=== PATIENT | male | born 1950 | race Caucasian/White ===

== ENCOUNTER → 2018-03-26 08:23 | Outpatient (CLI) | payer MEDICARE ==
[~2018-03-26] VITALS: Ht 170.2 cm; Wt 44.1 kg
--- NOTE | ~2018-03-26 | OP ---
PATIENT NAME: THANG MCDANIEL MEDICAL RECORD: [id number] :48 LOCATION:D.CAT ADMISSION DATE: SURGEON: KARINA RUFF MD DATE OF OPERATION: 03/26/2018 PROCEDURES: 1. PTCA stent LAD. 2. Left heart catheterization. 3. Selective coronary angiography. 4. Left ventriculogram. INDICATION: Angina and coronary artery disease. PROCEDURE IN DETAIL: After informed consent was obtained and after a detailed description of risks, benefits as well as alternative therapies, the patient elected to proceed with angiogram and angioplasty. The left femoral area was prepped and draped in normal sterile fashion. Left femoral artery was cannulated via modified Seldinger technique with placement of 6-Malian sheath. FINDINGS: The left ventriculogram was performed in standard 30-degree CARVALHO view, reveals good cardiac wall motion throughout all segments. Overall ejection fraction 55%. SELECTIVE CORONARY ANGIOGRAPHY: 1. Left main has no significant angiographic disease. 2. Left anterior descending has previously placed stent proximally that is widely patent; however, the ostium has 90% stenosis. The remainder of the LAD has only mild irregularities. 3. The left circumflex has mild irregularities, no flow-limiting stenosis. 4. The right coronary artery has previously placed stent. This is widely patent. Mild to moderate disease elsewhere throughout the RCA. PTCA STENT OF THE LAD: The stent used was a 3.5 x 9 mm Integrity. Result was 0% residual stenosis. OVERALL IMPRESSION: Successful percutaneous transluminal coronary angioplasty stent of the left anterior descending going from 90% initial stenosis to 0% residual. TRANSINT:[id number] Voice Confirmation ID: [id number] DOCUMENT ID: [id number] KARINA RUFF MD at 1806 CC: [id number] DICTATION DATE: 03/26/18 1135 CANE STRIPPER: 03/26/18 1151 DEP CLI 03/26/18 [place] [id number]
--- NOTE | ~2018-03-26 | HEMODYNAMI ---
PATIENT:THANG MCDANIEL MEDICAL RECORD: [id number] : 48 LOCATION:[facility] ADMISSION DATE: 03/26/18 Generatedon:03/26/201811:30 Patient name: THANG MCDANIEL Patient #: [id number] SSN: : 1950 Date of study: 03/26/2018 Page: Of Hemodynamic Procedure Report Patient Data Patient Demographics Procedure consent was obtained First Name: THANG Gender: Male Last Name: VIOLETA : 1950 [facility] Initial: ASHLEY Age: 67 year(s) Patient #: [id number] Race: Unknown Additional ID: [id number] Contact details [address]: [address] [place] [address] State: [place] City: [place] Zip code: [address] Admission Admission Data Admission Date: 03/26/2018 Admission Time: 8:23 Procedure Procedure Types Cath Procedure Diagnostic Procedure LHC LHC w/Coronaries Sedation Charges Moderate Sedation up to 15 minutes PCI Procedure Coronary Stent Coronary Stent Initial Peripheral Cath Diagnostic Procedure Cath Peripheral Ujiih-Dqqeibw-Bug-Off Procedure Description Procedure Date Procedure Date: 03/26/2018 Procedure Start Time: 11:02 Procedure End Time: 11:29 Procedure Staff Name Function Maldonado Bright MD Performing Physician Felicia Massey RT Monitor Susanne Payne RT Scrub Asaf Whitaker RN Nurse Procedure Data Cath Procedure Fluoroscopy Diagnostic fluoroscopy Total fluoroscopy Time: 4.9 time: 4.9 min min Diagnostic fluoroscopy Total fluoroscopy dose: 129 dose: 129 mGy mGy Contrast Material Contrast Material Type Amount (ml) Isovue 300 118 Entry Location Entry Primary Successful Side Size Upsize Upsize Entry Closure Succes sful Closure Location (Fr) 1 (Fr) 2 (Fr) Remarks Device Remarks Femoral Left 5 Fr 6 Fr Exoseal artery Short Estimated blood loss: 10 ml Diagnostic catheters Device Type Used For End Catheter Placement MULTIPACK Pigtail 5 Fr LV Angiography catheter MULTIPACK Pigtail 5 Fr Abdominal catheter aortogram with runoff MULTIPACK JL 4.0 5Fr Left Coronary catheter Angiography MULTIPACK 3DRC 5Fr Right Coronary catheter Angiography Procedure Complications No complications Procedure Medications Medication Administration Route Dosage Oxygen etCO2 Nasal cannula 2 l/min Heparin Flush Bag added to field 2 bags (1000units/500ml NS) 0.9% NaCl I.V. 100 ml/hr Fentanyl I.V. 25 mcg Versed I.V. 0.5 mg Fentanyl I.V. 25 mcg Versed I.V. 0.5 mg Fentanyl I.V. 25 mcg Versed I.V. 0.5 mg Heparin Bolus I.V. 4000 units Integrilin (Bolus I.V. 4 ml 2mg/ml) Integrilin (Bolus wasted 6 ml 2mg/ml) Plavix P.O. 600 mg Hemodynamics Rest Heart Rate: 74 (bpm) Snapshots Pre Cath Intra NCS Post Cath Vital Signs Time Heart Resp SPO2 etCO2 NIBP (mmHg) Rhythm Pain Sedation Rate (ipm) (%) (mmHg) Status Level (bpm) 10:50:56 77 18 89 0 161/93(132) NSR 0 (11) 10(A) , No pain 10:55:08 69 17 96 19.5 158/90(134) NSR 0 (11) 10(A) , No pain 10:59:18 74 16 97 0 159/95(123) NSR 0 (11) 9(A) , No pain 11:03:31 75 16 97 19.5 133/84(123) NSR 0 (11) 9(A) , No pain 11:07:37 77 17 99 12.7 145/82(98) NSR 0 (11) 9(A) , No pain 11:11:47 80 17 98 10.5 141/80(116) NSR 0 (11) 9(A) , No pain 11:15:55 87 17 98 17.2 138/84(108) NSR 0 (11) 9(A) , No pain 11:20:01 89 16 98 27.7 134/85(113) NSR 0 (11) 9(A) , No pain 11:24:09 94 16 98 24.7 126/78(102) NSR 0 (11) 10(A) , No pain 11:28:14 87 22 98 27 126/72(101) NSR 0 (11) 10(A) , No pain Medications Time Medication Route Dose Verified Delivered Reason Notes Effectiveness by by 10:52:06 Oxygen etCO2 2 Maldonado Ron Per physician Nasal l/min Kaila Whitaker RN cannula 10:52:15 Heparin Flush added 2 Maldonado Ron used for Bag to bags Kaila Whitaker RN procedure (1000units/500ml field NS) 10:53:20 0.9% NaCl I.V. 100 Maldonado Ron Per physician ml/hr Kaila Whitaker RN 10:56:24 Fentanyl I.V. 25 Maldonado Ron for sedation mcg Kaila Whitaker RN 10:56:31 Versed I.V. 0.5 Maldonado Ron for sedation mg Kaila Whitaker RN 10:58:09 Fentanyl I.V. 25 Maldonado Ron for sedation mcg Kaila Whitaker RN 10:58:16 Versed I.V. 0.5 Maldonado Boydy for sedation mg Kaila Whitaker RN 11:09:03 Fentanyl I.V. 25 Maldonado Ron for sedation mcg Kaila Whitaker RN 11:09:07 Versed I.V. 0.5 Maldonado Ron for sedation mg Kaila Whitaker RN 11:20:24 Heparin Bolus I.V. 4000 Maldonado Ron for units Kaila Whitaker RN anticoagulation 11:20:34 Integrilin I.V. 4 ml Maldonado Ron for (Bolus 2mg/ml) Kaila Whitaker RN antiplatelet therapy 11:20:42 Integrilin wasted 6 ml Maldonado Ron for (Bolus 2mg/ml) Kaila Whitaker RN antiplatelet therapy 11:27:56 Plavix P.O. 600 Maldonado Ron for mg Kaila Whitaker RN antiplatelet therapy Procedure Log Time Note 10:30:05 Asaf Whitaker RN sent for patient. Start room use. 10:39:06 Time tracking: Regular hours (M-F 7:00 - 5:00) 10:39:12 Plan of Care:Hemodynamics will remain stable., Cardiac rhythm will remain stable., Comfort level will be maintained., Respiratory function will remain adequate., Patient/ family verbilizes understanding of procedure., Procedure tolerated without complication., Recovers from procedure without complications.. 10:44:57 Patient received from Pre/Post Procedure Room to [facility] 3 Alert and oriented. Tansferred to table in Supine position. 10:44:58 Warm blankets applied, and ugo hugger turned on for patient comfort. 10:44:59 Correct patient and procedure confirmed by team. 10:45:00 Signed procedure consent form obtained from patient. 10:45:00 ECG and BP/O2 sat monitors applied to patient. 10:45:01 Full Disclosure recording started 10:49:50 Vital chart was started 10:49:52 Baseline sample Acquired. 10:50:00 Rhythm: sinus rhythm 10:50:08 H&P Date Dictated: 03/26/2018 Within 30 days and on chart., H&P Addendum completed by physician on day of procedure. (MUST COMPLETE FOR ALL OUTPATIENTS). 10:50:10 Pre-procedure instructions explained to patient. 10:50:10 Pre-op teaching completed and patient verbalized understanding. 10:50:12 Family in patients room. 10:50:14 Patient NPO since Midnight. 10:50:15 Is the patient allergic to Iodine/contrast media? No. 10:50:16 Was the patient premedicated? No 10:50:17 Is patient on blood thinner?No 10:50:19 Patient diabetic? No. 10:50:21 Previous problem with sedation/anesthesia? No ? 10:50:23 Snore? Yes 10:50:24 Sleep apnea? No 10:50:25 Deviated septum? No 10:50:25 Opens mouth fully? Yes 10:50:26 Sticks out tongue? Yes 10:50:30 Airway obstruction? No ? 10:50:34 Dentures? Yes in tight 10:50:38 Pre procedure: right dorsailis pedis pulse 1+ Palpable, but thready & weak; easily obliterated 10:50:41 Pre procedure: left dorsailis pedis pulse 1+ Palpable, but thready & weak; easily obliterated 10:50:45 Patient pain scale 0/10 ?. 10:50:51 IV patent on arrival in left forearm with 0.9% NaCl at [facility]. 10:50:53 Lab results completed and on chart. 10:51:02 Left groin area was prepped with chlora-prep and draped in sterile fashion 10:51:03 Alarms reviewed by R. N. 10:51:03 Sharps counted by scrub and verified by R.N. 10:52:06 Oxygen 2 l/min etCO2 Nasal cannula was administered by Asaf Whitaker RN; Per physician; 10:52:15 Heparin Flush Bag (1000units/500ml NS) 2 bags added to field was administered by Asaf Whitaker RN; used for procedure; 10:53:20 0.9% NaCl 100 ml/hr I.V. was administered by Asaf Whitaker RN; Per physician; 10:55:53 Final Timeout: patient, procedure, and site verified with staff and physician. All members of the team are in agreement. 10:55:56 Left groin site verified by team. 10:55:59 Physical assessment completed. ASA score P 2 - A patient with mild systemic disease as per Maldonado Bright MD. 10:56:03 Sedation plan: IV Moderate Sedation Medication:Versed, Fentanyl 10:56:24 Fentanyl 25 mcg I.V. was administered by Asaf Whitaker RN; for sedation; 10:56:31 Versed 0.5 mg I.V. was administered by Asaf Whitaker RN; for sedation; 10:58:09 Fentanyl 25 mcg I.V. was administered by Asaf Whitaker RN; for sedation; 10:58:16 Versed 0.5 mg I.V. was administered by Asaf Whitaker RN; for sedation; 10:59:28 Zero performed for pressure channel P1 10:59:41 Zero performed for pressure channel P1 10:59:44 Zero performed for pressure channel P1 10:59:53 Use device set Femoral Dx 10:59:54 ACIST Syringe (43329) opened to sterile field. 10:59:54 Bag Decanter (2001S) opened to sterile field. 10:59:55 Medline Cath Pack ([id number]) opened to sterile field. 10:59:55 DIAGNOSTIC WIRE .035 260cm J wire (534426) opened to sterile field. 10:59:56 ACIST Hand Control (40368) opened to sterile field. 10:59:57 ACIST Manifold (46206) opened to sterile field. 10:59:57 DIAGNOSTIC Multipack 5Fr catheter set (FL5461) opened to sterile field. 10:59:59 Tegaderm 4 x 4 (1626W) opened to sterile field. 11:00:01 SHEATH Prelude 5Fr 0.035 (XPK-2C-03-035) opened to sterile field. 11:00:33 Baseline sample Acquired. 11:02:05 Procedure started. 11:02:09 Local anesthetic to left femerol artery with Lidocaine 2% by Maldonado Bright MD.INITIAL ACCESS ONLY 11:05:58 A 5 Fr sheath was inserted into the Left Femoral artery 11:06:47 A MULTIPACK Pigtail 5 Fr catheter was advanced over the wire and used for LV Angiography. 11:09:03 Fentanyl 25 mcg I.V. was administered by Asaf Whitaker RN; for sedation; 11::07 Versed 0.5 mg I.V. was administered by Asaf Whitaker RN; for sedation; 11:11:15 A MULTIPACK Pigtail 5 Fr catheter was advanced over the wire and used for Abdominal aortogram with runoff. 11:12:22 Catheter removed. 11:13:27 Procedure type changed to Cath procedure, Diagnostic procedure, LHC, LHC w/Coronaries, Sedation Charges, Moderate Sedation up to 15 minutes, PCI procedure, Coronary Stent, Coronary Stent Initial, Peripheral Cath Diagnostic Procedure, Cath Peripheral, Axrfm-Nvdgvtj-Zli-Off 11:13:35 A MULTIPACK JL 4.0 5Fr catheter was advanced over the wire and used for Left Coronary Angiography. 11:15:23 Catheter removed. 11:15:30 A MULTIPACK 3DRC 5Fr catheter was advanced over the wire and used for Right Coronary Angiography. 11:17:55 Catheter removed. 11:18:00 Sheath upsized to a 6 Fr Short. 11:18:07 Use device set [facility] PCI 11:18:08 SHEATH Prelude 6Fr 0.035 (TLC-3U-32-035) opened to sterile field. 11:18:11 INFLATOR Merit BasixCompak (TP4717) opened to sterile field. 11:18:19 GUIDE 6FR EBU 3.5 catheter ([id number]) opened to sterile field. 11:18:21 CHOICE PT Extra Support 182cm wire ([id number]) opened to sterile field. 11:20:00 6 Fr EBU 3.5 guide catheter was inserted over the wire 11:20:24 Heparin Bolus 4000 units I.V. was administered by Asaf Whitaker RN; for anticoagulation; 11:20:27 CHOICE PT ES wire advanced. 11:20:34 Integrilin (Bolus 2mg/ml) 4 ml I.V. was administered by Asaf Whitaker RN; for antiplatelet therapy; 11::42 Integrilin (Bolus 2mg/ml) 6 ml wasted was administered by Asaf Whitaker RN; for antiplatelet therapy; 11::58 Place stent Inflation Number: 1 A INTEGRITY RX 3.5 x 09 stent ([id number]) was prepped and advanced across the Prox LAD. The stent was deployed at 17 [place] for 0:08 (min:sec). 11::39 Stent catheter was removed intact over wire. 11::40 Wire removed. 11::41 Guide catheter removed. 11::49 Sheath removed intact; hemostasis achieved with Exoseal to the Left Femoral artery. 11:22:51 Procedure ended.(Physican Out) 11:23:31 Fluoroscopy time 04.90 minutes. 11:23:38 Fluoroscopy dose: 129 mGy 11::38 Flurop Dose total: 129 11::42 Contrast amount:Isovue 300 118ml. 11:23:43 Sharps counted by scrub and verified by R.N. 11:23:45 Insertion/operative site no bleeding no hematoma. 11:23:49 Post-op/insertion site Left Femoral artery dressed using a 4 x 4 and Tegaderm. 11:23:56 Post left femerol artery:stable, clean and dry 11::58 Post Procedure Pulses reassessed and unchanged 11:24:01 Post-procedure physical assessment completed. ASA score P 2 - A patient with mild systemic disease as per Maldonado Bright MD. 11:24:03 Post procedure rhythm: unchanged. 11:24:07 Estimated blood loss: 10 ml 11:24:08 Post procedure instruction explained to patient.Patient verbalizes understanding. 11:24:09 Patient needs reinforcement of post procedure teaching. 11:24:46 Procedure Complication : No complications 11:24:48 See physician's report for complete and final results. 11:25:00 EXOSEAL 6Fr (EX600) opened to sterile field. 11:26:23 Procedure and supply charges have been captured, reviewed, submitted and are correct. 11:27:56 Plavix 600 mg P.O. was administered by Asaf Whitaker RN; for antiplatelet therapy; 11:29:30 Vital chart was stopped 11::40 Report given to Pre/Post Procedure Room. 11:29:46 Patient transfered to Pre/Post Procedure Room with Stretcher. 11:29:55 Procedure ended. 11:29:55 Full Disclosure recording stopped 11:29:58 End room use (Document Last) Intervention Summary Intervention Notes Time ActionType Lesion and Equipment Action# Pressure Duration Attributes Used 11:21:58 Place stent Prox LAD INTEGRITY RX 1 17 00:08 3.5 x 09 stent ([id number]) Device Usage Item Name Manufacture Quantity Catalog Number Hospital Part Current Minimal Lot# / Charge Number Stock Stock Serial# Code ACIST Syringe Acist 1 18353 099063 496018 146042 20 (39747) Medical Systems Inc Bag Decanter Microtek 1 2001S 341185 65568 654935 5 (2001S) Medical Inc. Medline Cath Cardinal 1 [id number] 274206 13370 136015 5 Pack Health ([id number]) DIAGNOSTIC WIRE [place] 1 823319 305046 584280 743664 30 .035 260cm J wire (905783) ACIST Hand Acist 1 73789 750337 122376 209657 5 Control (26700) Medical Systems Inc ACIST Manifold Acist 1 38957 625741 591912 757982 5 (94069) Medical Systems Inc DIAGNOSTIC Cardinal 1 EE5855 699332 58388 973192 30 Multipack 5Fr Health catheter set (QV9140) Tegaderm 4 x 4 3M 1 1626W 769640 145833 889629 5 (1626W) SHEATH Prelude Merit 1 ZFN-2G-93-035 859163 306581 663744 5 5Fr 0.035 Medical (CCB-8I-51-035) MULTIPACK Cardinal 1 515788 5 Pigtail 5 Fr Health catheter MULTIPACK JL Cardinal 1 780933 5 4.0 5Fr Health catheter MULTIPACK 3DRC Cardinal 1 297787 5 5Fr catheter Health SHEATH Prelude Merit 1 LNP-5W-12-35 974563 2845747 237607 5 6Fr 0.035 Medical (ETK-2W-88-035) INFLATOR Merit Merit 1 VM6643 925967 002893 388273 15 TradingView Medical (EG0247) GUIDE 6FR EBU Medtronic 1 [id number] 279444 01218 255780 3 3.5 catheter ([id number]) CHOICE PT Extra [place] 1 [id number] 295050 128569 886505 5 Support 182cm Scientific wire ([id number]) INTEGRITY RX Medtronic 1 [id number] 919682 297938 645936 5 [id number] 3.5 x 09 stent ([id number]) EXOSEAL 6Fr Cardinal 1 EX600 384332 110442 578640 10 (EX600) Health Signature Audit [place] Stage Time Signature Unsigned Intra-Procedure 03/26/2018 Felicia 11:30:10 AM Counts RT(R) Signatures Monitor : Felicia Signature : Counts RT Date : Time : [address] [address]
--- NOTE | ~2018-03-26 | OP ---
PATIENT NAME: THANG MCDANIEL MEDICAL RECORD: [id number] :48 LOCATION:D.CAT ADMISSION DATE: SURGEON: KARINA RUFF MD DATE OF OPERATION: 03/26/2018 PROCEDURE: 1. Aortofemoral runoff. 2. Abdominal aortography. INDICATION: Claudication and peripheral vascular disease. PROCEDURE IN DETAIL: After informed consent was obtained and after a detailed description of the risks, benefits as well as alternative therapies, the patient elected to proceed with angiogram and aortofemoral runoff. The left femoral artery had a preexisting sheath from cardiac intervention. All catheters exchanged through this sheath. FINDINGS: Abdominal aortography was performed. The catheter was pulled down for runoff. Abdominal aortography reveals moderate diffuse disease of the abdominal aorta, no flow-limiting stenosis. No renal artery stenosis. RIGHT LEG: A. Iliac: The common iliac is widely patent. The external iliac has at least 80% stenosis. B. Femoral system: The common and deep femoral are widely patent. Superficial femoral has moderate diffuse disease with multiple areas of greater than 80% stenosis. C. Popliteal and infrapopliteal vessels are patent. There is 3-vessel runoff to the foot, although moderately diffusely diseased. LEFT LEG: A. Iliac: The common iliac is with mild diffuse disease. The external iliac is with moderate diffuse disease up to 70% to 80%. B. Femoral system: The common femoral is moderately diffusely diseased as is the SFA. There are multiple areas of at least 70% to 80% stenosis. C. Popliteal and infrapopliteal vessels are patent with 3-vessel runoff to the foot, although moderately diffusely diseased. OVERALL IMPRESSION: Moderate diffuse disease of all segments including the iliac, SFA and infrapopliteal areas of both legs. TRANSINT:[id number] Voice Confirmation ID: [id number] DOCUMENT ID: [id number] KARINA RUFF MD at 1806 CC: [id number] DICTATION DATE: 03/26/18 1135 MINING MANAGER: 03/26/18 1151 DEP CLI 03/26/18 [facility] [address] [place] [id number]
[~2018-03-26 08:23] MED LIST: ALTACE10 MG PO; BAYER CHEWABLE81 MG PO; IMDUR30 MG PO; PLAVIX75 MG PO; PRAVACHOL40 MG PO; PREVACID30 MG PO; TOPROL XL50 MG PO
[2018-03-26 09:01] VITALS: BP 151/85; Ht 170.2 cm; Wt 44.1 kg
[2018-03-26 09:19] LABS: CALC OSMOLALITY 266 mosm/kg (275-300); CALCIUM 8.9 mg/dL (8.5-10.1); CARBON DIOXIDE 33.5 mmol/L (21.0-32.0); CHLORIDE - SERUM 96 mmol/L (98-107); CREATININE - SERUM 0.8 mg/dL (0.6-1.3); GLUCOSE 87 mg/dL (74-106); POTASSIUM - SERUM 4.7 mmol/L (3.5-5.1); SODIUM 134 mmol/L (136-145); UREA NITROGEN 13 mg/dL (7-18); eGFR NON AFRICAN AMERICAN > 90 mL/min (90-120)
[2018-03-26 10:01] LABS: BASOPHILS 0.5 % (0-2); EOSINOPHILS 2.2 % (0-7); HEMATOCRIT 45.9 % (42.0-54.0); HEMOGLOBIN 15.6 g/dL (13.5-17.5); IMMATURE GRANULOCYTES 0.1 % (0-5); LYMPHOCYTES 12.3 % (15-50); MCV 91.1 fL (80.0-100.0); MEAN PLATELET VOLUME 9.4 fL (7.4-10.4); MONOCYTES 7.7 % (2-11); NEUTROPHILS 77.2 % (40-80); PLATELET COUNT 366 10x3/uL (130-400); RBC 5.04 10x6/uL (4.20-6.10); RDW 12.8 % (11.5-14.5); WBC 8.7 10x3/uL (4.8-10.8)
== END | disposition home or self-care (01) ==
LOC: D.CATH 08:23
PROVIDERS: Internal Medicine Interventional Cardiology
DX: I25.119 Atherosclerotic heart disease of native coronary artery with unspecified angina pectoris (principal); Z95.5 Presence of coronary angioplasty implant and graft; I70.213 Atherosclerosis of native arteries of extremities with intermittent claudication, bilateral legs; Z01.812 Encounter for preprocedural laboratory examination

== ENCOUNTER → 2018-11-12 10:45 | Outpatient (CLI) | payer MEDICARE ==
[2018-03-26 09:01] VITALS: BMI 15.2
--- NOTE | 2018-11-17 14:39 | EC ---
PATIENT:THANG MCDANIEL DATE OF SERVICE: 11/12/18 SEX: M MEDICAL RECORD: [id number] DATE OF : [birth year] [facility] AGE OF PATIENT: 68 ADMISSION DATE: 11/12/18 REFERRING PHYSICIAN: INTERPRETING PHYSICIAN: KARINA BRIGHT MD ECHOCARDIOGRAM REPORT ECHO CHARGES 4 ECHO COMPLETE Date: 11/12/18 CLINICAL DIAGNOSIS: CAD, EDEMA LE HX OF PACER,CAD ECHOCARDIOGRAPHIC MEASUREMENTS (adult normal given) AC root (d.<3.7cm) 3.4 cm LV Septum d (<1.2 cm> 0.90 cm Valve Excursion 1.9 cm LV Septum (systole) 1.2 cm Left Atria (s.<4.0cm> 3.5 cm LVPW d(<1.2cm) 1.3 cm RV (d.<2.3cm) 3.2 cm LVPW (sytole) 1.4 cm LV diastole(<5.6CM) 3.6 cm MV E-F(>70mm/sec) cm LV systole 2.3 cm LVOT Diameter 1.8 cm MV exc.(>10mm) 1.9 cm Est.ejection fraction (50-75%) % DOPPLER: LVIT cm/sec A 55.0 cm/sec E 39.0 cm/sec LA cm/sec RVSP 31 mmHg LVOT 98 cm/sec AOP1/2T m/s Asc. Ao 141 cm/sec RVOT 97 cm/sec RA cm/sec PA 145 cm/sec AV Gradient Peak 7.90 mmHg AV Mean 3.63 mmHg AV Area 1.9 cm MV Gradient Peak 2.80 mmHg MV Mean 0.58 mmHg MV Area cm COMMENTS: Cattle Knocker: 2 ТАТЬЯНА GROSSMAN Vehicle Dynamics Engineer: 1 Dr. Bright TAPE# PACS Pericardial Effusion N DATE OF SERVICE: FINDINGS: 1. Left ventricular chamber size is within normal limits. Left ventricular systolic function is normal. Overall ejection fraction estimated at 60%. 2. Left atrium, right atrium, right ventricle sizes are within normal limits. 3. Valvular structures have normal structure and motion. 4. Doppler interrogation reveals mild tricuspid regurgitation, no other valvular insufficiency or stenosis. 5. No evidence of pericardial effusion or left ventricular thrombus. ECHOCARDIOGRAM REPORT [id number] THANG MCDANIEL TRANSINT:[id number] Voice Confirmation ID: [id number] DOCUMENT ID: [id number] KARINA BRIGHT MD at 1439 CC: [id number] DICTATION DATE: 11/12/18 164 HOTEL CONCIERGE: 11/12/182026 DEP CLI 11/12/18 [place] [id number] [place] [id number]
== END | disposition home or self-care (01) ==
LOC: D.HCCARDIO 10:45
PROVIDERS: ATTEND Internal Medicine Interventional Cardiology
DX: I25.10 Atherosclerotic heart disease of native coronary artery without angina pectoris (principal)

== ENCOUNTER 2018-12-08 03:20 | Inpatient (IN) | payer MEDICARE ==
[~2018-12-08] VITALS: Ht 170.2 cm; Wt 45.8 kg
[2018-12-08] MEDS ORDERED: OMEPRAZOLE20 M1 PO ×2 (03:23→08:30)
[2018-12-08 04:07] LABS: BASOPHILS 0.2 % (0-2); EOSINOPHILS 6.2 % (0-7); HEMATOCRIT 40.3 % (42.0-54.0); HEMOGLOBIN 13.3 g/dL (13.5-17.5); IMMATURE GRANULOCYTES 0.2 % (0-5); LYMPHOCYTES 8.9 % (15-50); MCH 31.1 pg (26.0-34.0); MCV 94.2 fL (80.0-100.0); MEAN PLATELET VOLUME 9.4 fL (7.4-10.4); MONOCYTES 7.2 % (2-11); NEUTROPHILS 77.3 % (40-80); PLATELET COUNT 265 10x3/uL (130-400); RBC 4.28 10x6/uL (4.20-6.10); RDW 14.2 % (11.5-14.5); WBC 8.4 10x3/uL (4.8-10.8)
[2018-12-08 04:11] LABS: ALBUMIN 3.5 g/dL (3.4-5.0); ALKALINE PHOSPHATASE 88 U/L (46-116); ALT (SGPT) 47 U/L (10-68); CALC OSMOLALITY 281 mosm/kg (275-300); CALCIUM 9.1 mg/dL (8.5-10.1); CHLORIDE - SERUM 100 mmol/L (98-107); CREATININE - SERUM 0.8 mg/dL (0.6-1.3); POTASSIUM - SERUM 4.2 mmol/L (3.5-5.1); PROTEIN - SERUM 7.6 g/dL (6.4-8.2); SODIUM 139 mmol/L (136-145); UREA NITROGEN 19 mg/dL (7-18); eGFR NON AFRICAN AMERICAN > 90 mL/min (90-120)
[2018-12-08 04:12] LABS: APTT 29.6 SECONDS (22.8-39.4); PROTIME 12.7 SECONDS (11.6-15.0)
[2018-12-08 04:13] LABS: GLUCOSE 131 mg/dL (74-106)
[2018-12-08 04:14] LABS: D-DIMER-QUANTITATIVE 0.3 ug/mLFEU (0.20-0.54)
[2018-12-08 04:23] LABS: CKMB 4.7 U/L (0.0-3.6); CREATINE KINASE 106 UL (21-232); PRO BNP 261 pg/mL (0-125)
[2018-12-08 04:26] LABS: TROPONIN-I < 0.017 ng/mL (0.000-0.060)
[2018-12-08 05:15] VITALS: BP 156/88
[2018-12-08 05:45] VITALS: BP 149/68
[2018-12-08 06:11] VITALS: BP 145/79
--- NOTE | 2018-12-08 06:20 | NUR ---
PATIENT AWAKE SITTING UP IN BED VISITING WITH FAMILY, RESPIRATIONS REGULAR, NO ACUTE DISTRESS NOTED.
[2018-12-08 07:04] LABS: % SATURATION 11 % (15-55); IRON 37 ug/dl (35-150); TOTAL IRON BIND CAPACITY 322 ug/dl (260-445); UNSAT IRON BIND CAPACITY 285 ug/dl (150-375)
--- NOTE | 2018-12-08 07:07 | NUR ---
REPORT GIVEN TO GERA BERMEO.
[2018-12-08] MEDS ORDERED: ALTACE10 MG PO (08:30)
[2018-12-08] MEDS ORDERED: LASIX40 MG PO (08:31)
[2018-12-08] MEDS ORDERED: PRAVACHOL40 MG PO (08:31)
[2018-12-08 09:50] VITALS: BMI 15.8
[2018-12-08 12:03] VITALS: BP 112/73
[2018-12-08 12:31] VITALS: Ht 170.2 cm; Wt 45.8 kg
[2018-12-08 12:40] LABS: APPEARANCE CLOUDY (CLEAR); BILIRUBIN NEGATIVE (NEGATIVE); COLOR YELLOW (YELLOW); GLUCOSE 1000 mg/dL (NEGATIVE); KETONE NEGATIVE (NEGATIVE); NITRITE NEGATIVE (NEGATIVE); PROTEIN TRACE mg/dL (NEGATIVE); SPECIFIC GRAVITY 1.025 (1.005-1.020); UROBILINOGEN NORMAL (NORMAL)
[2018-12-08 12:41] LABS: AMORPHOUS SEDIMENT >1+ /lpf (NONE SEEN); BACTERIA FEW /hpf (NONE SEEN); EPITHELIAL CELLS RARE /hpf (0-5); RED CELLS - URINE RARE /hpf (0-5)
[2018-12-08 17:29] VITALS: BP 118/61
--- NOTE | 2018-12-08 18:40 | NUR ---
PT LYING IN BED RESTING. DENIES NEEDS AT THIS TIME.
--- NOTE | 2018-12-08 19:50 | NUR ---
SITTING UP IN BED WATCHING TV. ALERT AND ORIENTED X4. RESP IRREG. BBS EXP WHEEZES. O2 @ 3L/NC. REPORTS PROD COUGH WITH WHITE SPUTUM. TELEMETRY SHOWS SR 72 PACED. NO EDEMA NOTED. BRUISES NOTED TO BUE. SCDS IN USE BILAT. SALINE LOCK NOTED TO LT FOREARM. NO DISTRESS. DENIES PAIN. AMB WITH ASSIST. SR ELEVATED X2. CL IN REACH.
[2018-12-08 20:00] VITALS: BP 119/68
[2018-12-09 00:30] VITALS: BP 129/75
--- NOTE | 2018-12-09 03:03 | NUR ---
LYING IN BED WITH EYES CLOSED. RESP EVEN AND NONLABORED. NO DISTRESS. CL IN REACH.
[2018-12-09 04:30] VITALS: BP 124/76
[2018-12-09 06:09] LABS: BASOPHILS 0 % (0-2); EOSINOPHILS 0 % (0-7); HEMATOCRIT 38.9 % (42.0-54.0); HEMOGLOBIN 12.7 g/dL (13.5-17.5); IMMATURE GRANULOCYTES 0.1 % (0-5); LYMPHOCYTES 3.6 % (15-50); MCH 30.9 pg (26.0-34.0); MCHC 32.6 g/dL (31.0-37.0); MCV 94.6 fL (80.0-100.0); MEAN PLATELET VOLUME 9.7 fL (7.4-10.4); MONOCYTES 1.6 % (2-11); NEUTROPHILS 94.7 % (40-80); PLATELET COUNT 278 10x3/uL (130-400); RBC 4.11 10x6/uL (4.20-6.10); RDW 14.2 % (11.5-14.5); WBC 10.4 10x3/uL (4.8-10.8)
[2018-12-09 06:45] LABS: CALCIUM 9.2 mg/dL (8.5-10.1); CARBON DIOXIDE 32.3 mmol/L (21.0-32.0); CHLORIDE - SERUM 103 mmol/L (98-107); CREATININE - SERUM 0.8 mg/dL (0.6-1.3); GLUCOSE 145 mg/dL (74-106); MAGNESIUM - SERUM 2.2 mg/dL (1.8-2.4); POTASSIUM - SERUM 4.7 mmol/L (3.5-5.1); SODIUM 141 mmol/L (136-145); eGFR NON AFRICAN AMERICAN > 90 mL/min (90-120)
[2018-12-09 06:50] LABS: CALC OSMOLALITY 287 mosm/kg (275-300); UREA NITROGEN 25 mg/dL (7-18)
[2018-12-09 06:51] LABS: TROPONIN-I 0.369 ng/mL (0.000-0.060)
[2018-12-09 09:14] VITALS: BP 125/91
--- NOTE | 2018-12-09 11:19 | NUR ---
MORNING ASSESSMENT COMPLETE. SEE ASSESSMENT COMPLETE. SEE ASSESSMENT FLOWSHEET FOR FURTHER DETIALS. PT LYING IN BED AAO X4 TO PERSON, PLACE, TIME, AND SITUATION. DENIES NEEDS AT THIS TIME. CL IN REACH. SIDE RAILS UP X3 FOR PT SAFETY. BED IN LOWEST POSITION.
[2018-12-09 12:13] LABS: FOLATE (FOLIC ACID) - SERUM >20.0 ng/mL (>3.0)
[2018-12-09 12:17] VITALS: BP 104/57
--- NOTE | 2018-12-09 14:44 | NUR ---
NUTRITION F/U PT REPORTS ENJOYING THE FOOD. EATING 100% OF TODAYS MEALS. WILL CONTINUE TO HONOR FOOD PREFERENCES, MONITOR INTAKE. RD FOLLOWING
[2018-12-09 16:33] VITALS: BP 103/53
--- NOTE | 2018-12-09 19:40 | NUR ---
SITTING UP IN BED WATCHING TV. ALERT AND ORIENTED X4. RESP EVEN AND NONLABORED. BBS CTA BUT TIGHT. O2 @3L/NC. REPORTS PROD COUGH WITH WHITE SPUTUM. TELEMETRY SHOWS SR WITH RATE OF 91. BRUISES NOTED TO BUE. SCDS IN USE BILAT. NO EDEMA NOTED. SALINE LOCK NOTED TO LT FOREARM. NO DISTRESS. SR ELEVATED X2. CL IN REACH.
[2018-12-09 20:03] VITALS: BP 103/54
--- NOTE | 2018-12-10 00:02 | NUR ---
LYING IN BED. NO DISTRESS. DENIES NEEDS. SR ELEVATED X2. CL IN REACH.
[2018-12-10 04:29] LABS: BASOPHILS 0 % (0-2); EOSINOPHILS 0 % (0-7); HEMATOCRIT 36.7 % (42.0-54.0); HEMOGLOBIN 11.6 g/dL (13.5-17.5); IMMATURE GRANULOCYTES 0.2 % (0-5); LYMPHOCYTES 1.4 % (15-50); MCH 30.4 pg (26.0-34.0); MCHC 31.6 g/dL (31.0-37.0); MCV 96.1 fL (80.0-100.0); MEAN PLATELET VOLUME 9.4 fL (7.4-10.4); MONOCYTES 2.9 % (2-11); NEUTROPHILS 95.5 % (40-80); PLATELET COUNT 282 10x3/uL (130-400); RBC 3.82 10x6/uL (4.20-6.10); RDW 14.4 % (11.5-14.5)
[2018-12-10 04:34] LABS: WBC 17.3 10x3/uL (4.8-10.8)
[2018-12-10 04:48] LABS: CALC OSMOLALITY 292 mosm/kg (275-300); CALCIUM 8.7 mg/dL (8.5-10.1); CARBON DIOXIDE 33.6 mmol/L (21.0-32.0); CHLORIDE - SERUM 107 mmol/L (98-107); CREATININE - SERUM 0.9 mg/dL (0.6-1.3); GLUCOSE 143 mg/dL (74-106); SODIUM 142 mmol/L (136-145); eGFR NON AFRICAN AMERICAN 89 mL/min (90-120)
[2018-12-10 04:49] LABS: UREA NITROGEN 34 mg/dL (7-18)
[2018-12-10 05:19] VITALS: BP 124/66
[2018-12-10 08:04] VITALS: BP 136/88
--- NOTE | 2018-12-10 16:42 | EC ---
PATIENT:THANG MCDANIEL DATE OF SERVICE: 12/08/18 SEX: M MEDICAL RECORD: [id number] DATE OF : [birth year] LOCATION:[facility] AGE OF PATIENT: 68 ADMISSION DATE: 12/08/18 REFERRING PHYSICIAN: INTERPRETING PHYSICIAN: KARINA BRIGHT MD ECHOCARDIOGRAM REPORT ECHO CHARGES 5 ECHO LIMITED Date: 12/08/18 1 DOPPLER ECHO COLOR FLOW 2 DOPPLER ECHO PULSE CLINICAL DIAGNOSIS: CHF ECHOCARDIOGRAPHIC MEASUREMENTS (adult normal given) AC root (d.<3.7cm) 0 cm LV Septum d (<1.2 cm> 0 cm Valve Excursion 0 cm LV Septum (systole) 0 cm Left Atria (s.<4.0cm> 0 cm LVPW d(<1.2cm) 0 cm RV (d.<2.3cm) 0 cm LVPW (sytole) 0 cm LV diastole(<5.6CM) 0 cm MV E-F(>70mm/sec) 0 cm LV systole 0 cm LVOT Diameter 0 cm MV exc.(>10mm) 0 cm Est.ejection fraction (50-75%) 0 % DOPPLER: LVIT 0 cm/sec A 0 cm/sec E 0 cm/sec LA 0 cm/sec RVSP 50.0 mmHg LVOT 0 cm/sec AOP1/2T 0 m/s Asc. Ao 0 cm/sec RVOT 0 cm/sec RA 0 cm/sec PA 0 cm/sec AV Gradient Peak 0 mmHg AV Mean 0 mmHg AV Area 0 cm MV Gradient Peak 0 mmHg MV Mean 0 mmHg MV Area 0 cm COMMENTS: LIMITED STUDY Marketing Strategist: Carly EARLY Dam Tender Assistant: 1 Dr. Bright TAPE# PACS Pericardial Effusion N DATE OF SERVICE: 12/08/2018 ECHOCARDIOGRAM DATE OF SERVICE: 12/08/2018 FINDINGS: 1. Left ventricular chamber size is within normal limits. Left ventricular systolic function is normal. Overall ejection fraction estimated at 55%. 2. Left atrium, right atrium, and right ventricular chamber sizes are within ECHOCARDIOGRAM REPORT [id number] THANG MCDANIEL normal limits. 3. Valvular structures have normal structure and motion. 4. Doppler interrogation reveals mild tricuspid regurgitation, no other valvular insufficiency or stenosis. Pulmonary systolic pressure is estimated at 50 mmHg. 5. No evidence of pericardial effusion or left ventricular thrombus. TRANSINT:[id number] Voice Confirmation ID: [id number] DOCUMENT ID: [id number] KARINA BRIGHT MD at 1642 CC: [id number] DICTATION DATE: 12/09/18839 UI SOFTWARE ENGINEER: 12/09/[address] [facility] [address] [place] [address]
[2018-12-10 16:44] VITALS: BP 141/86
--- NOTE | 2018-12-10 19:15 | NUR ---
RECEIVED CARE FROM DAY NURSE. SITTING UP IN BED WATCHING TV. REPORTS NO NEEDS AT THIS TIME. CALL LIGHT AT SIDE. IV SL TO LEFT FA.
[2018-12-10 20:00] VITALS: BP 122/69
[2018-12-11] VITALS: BP 125/65
[2018-12-11 03:00] VITALS: BP 157/89
[2018-12-11 05:41] LABS: BASOPHILS 0 % (0-2); EOSINOPHILS 0 % (0-7); HEMATOCRIT 40.5 % (42.0-54.0); HEMOGLOBIN 12.8 g/dL (13.5-17.5); IMMATURE GRANULOCYTES 0.1 % (0-5); MCH 30.5 pg (26.0-34.0); MCHC 31.6 g/dL (31.0-37.0); MCV 96.7 fL (80.0-100.0); MEAN PLATELET VOLUME 9.6 fL (7.4-10.4); MONOCYTES 4.7 % (2-11); NEUTROPHILS 90.2 % (40-80); PLATELET COUNT 307 10x3/uL (130-400); RBC 4.19 10x6/uL (4.20-6.10); RDW 14.6 % (11.5-14.5)
[2018-12-11 05:44] LABS: WBC 10.2 10x3/uL (4.8-10.8)
[2018-12-11 05:55] LABS: CALC OSMOLALITY 288 mosm/kg (275-300); CALCIUM 8.7 mg/dL (8.5-10.1); CARBON DIOXIDE 30.3 mmol/L (21.0-32.0); CHLORIDE - SERUM 105 mmol/L (98-107); CREATININE - SERUM 0.9 mg/dL (0.6-1.3); GLUCOSE 106 mg/dL (74-106); POTASSIUM - SERUM 4.7 mmol/L (3.5-5.1); SODIUM 142 mmol/L (136-145); UREA NITROGEN 29 mg/dL (7-18); eGFR NON AFRICAN AMERICAN 89 mL/min (90-120)
--- NOTE | 2018-12-11 09:00 | NUR ---
ALERT AND ORIENTED X 3. EXPIRATORY CRACKLES NOTED TO BUQ ANTERIOR AND LLQ ANTERIOR. TELEMETRY INTACT AND PACED. LT F/A S/L W/O ANY S/S OF INFECTION. DENIES ANY PAIN OR DISCOMFORT CAP REFILL <3 SEC. ENCOURAGED TO USE CALL LIGHT FOR ASSIST.
[2018-12-11 09:09] VITALS: BP 157/77
[2018-12-11 12:50] VITALS: BP 128/69
[2018-12-11] MEDS ORDERED: ALBUTEROL SULF8.5 GM INH (13:58)
[2018-12-11] MEDS ORDERED: PREDNISONE10 MG PO (13:59)
[2018-12-11] MEDS ORDERED: IPRAT-ALBUT 0.5-3 ML UPD (15:53)
[2018-12-11] MEDS ORDERED: IPRAT-ALBUT 0.5-3 ML INH (15:56)
--- NOTE | 2018-12-11 16:00 | MORECARE ---
CASE MANAGEMENT DISCHARGE SUMMARY PATIENT: THANG MCDANIEL ASHLEY UNIT: [id number] ADM DATE: 12/08/18 AGE: 68 : 49 SEX: M ROOM/BED: D.2215 AUTHOR: OLGA POMPA PHYSICIAN: REFERRING PHYSICIAN: TRISTAN MORAN MD DATE OF SERVICE: 12/11/18 Discharge Plan Patient Name: THANG MCDANIEL Facility: [facility]:[place] : 1950 Planned Disposition: Home with Home Health Anticipated Discharge Date: 12/11/18 Discharge Date: Expected LOS: 3 Initial Reviewer: [email or web address] Initial Review Date: 12/08/2018 Generated: 12/11/18 5:00 pm Patient Name: THANG MCDANIEL Page 77750 at 1600 All edits/amendments must be made on the electronic document DICTATION DATE: 12/11/181558 RESEARCH MANAGEMENT ASSOCIATE: ISIDRO 12/11/181558 RPT#: [id number] DC DATE: STATUS: ADM IN [facility] [address] [place] [address] END OF REPORT
--- NOTE | 2018-12-11 16:06 | MORECARE ---
CASE MANAGEMENT DISCHARGE SUMMARY PATIENT: THANG MCDANIEL ASHLEY UNIT: [id number] ADM DATE: 12/08/18 AGE: 68 : 49 SEX: M ROOM/BED: D.2215 AUTHOR: OLGA POMPA PHYSICIAN: REFERRING PHYSICIAN: TRISTAN MORAN MD DATE OF SERVICE: 12/11/18 Discharge Plan Patient Name: THANG MCDANIEL [facility] [facility] 1950 Planned Disposition: Home with Home Health Anticipated Discharge Date: 12/11/18 Discharge Date: Expected LOS: 3 Initial Reviewer: [email or web address] Initial Review Date: 12/08/2018 Generated: 12/11/18 5:06 pm DCPIA - Discharge Planning Initial Assessment Updated by [id number]: Roseanna Garcia on 12/11/18 4:01 pm * Is the patient Alert and Oriented? Yes * How many steps to enter\exit or inside your home? FIVE * PCP DR CONTRERAS * Pharmacy [facility] [address] * Preadmission Environment Home Alone * ADLs Independent * Equipment Nebulizer Oxygen * Other Equipment [employer] IS DME PROVIDER * List name and contact numbers for known caregivers / representatives who currently or will assist patient after discharge: [place] [id number] * Verbal permission to speak to the caregivers and representatives has been obtained from the patient. No * Community resources currently utilized Home Health * Please name any agencies selected above. [place], [place] * Additional services required to return to the preadmission environment? Yes * Can the patient safely return to the preadmission environment? Yes * Has this patient been hospitalized within the prior 30 days at any hospital? No Last DP export: 12/11/18 3:00 p Patient Name: THANG MCDANIEL Page [id number] at 1606 All edits/amendments must be made on the electronic document DICTATION DATE: 12/11/18 1606 CDL TRUCK DRIVER: ISIDRO 12/11/18 1606 RPT#: [id number] DC DATE: STATUS: ADM IN [facility] [address] [place] [address] END OF REPORT
--- NOTE | 2018-12-11 16:21 | NUR ---
IV DISCONTINUED WITH DISCHARGE INSTRUCTIONS GIVEN AND VERBALIZED UNDERSTANDING. AMBULATORY WITH O2. DISCHARGED UNDER THE CARE OF FAMILY VIA POV. STABLE AT TIME OF DISCHARGE.
--- NOTE | 2018-12-11 16:56 | MORECARE ---
CASE MANAGEMENT DISCHARGE SUMMARY PATIENT: THANG MCDANIEL UNIT: [id number] ADM DATE: 12/08/18 AGE: 68 : 49 SEX: M ROOM/BED: D.2215 AUTHOR: ALTEHA,DOC PHYSICIAN: REFERRING PHYSICIAN: TRISTAN MORAN MD DATE OF SERVICE: 12/11/18 Discharge Plan Patient Name: THANG MCDANIEL Facility: [facility]:[place] : 1950 Planned Disposition: Home with Home Health Anticipated Discharge Date: 12/11/18 Discharge Date: 12/11/2018 Expected LOS: 3 Initial Reviewer: [email or web address] Initial Review Date: 12/08/2018 Generated: 12/11/18 5:56 pm Comments DCP- Discharge Planning Updated by [email or web address]: Roseanna Garcia on 12/11/18 3:[address] CM MET WITH PATIENT AT THE BEDSIDE. EXPLAINED MY ROLE AND RECEIVED VERBAL CONSENT TO PROCEED WITH ASSESSMENT. PATIENT LIVES ALONE. HE HAS 5 STEPS WITHOUT A RAIL TO ENTER HIS HOME. HE FEELS SAFE IN HIS HOME. HIS BROTHER, KURT, "LIVES RIGHT BEHIND HIM". KURT WILL BE PROVIDING THE TRANSPORTATION TO HOME. HE HAS [facility]. HE NOTIFIED THEM HE HAD BEEN ADMITTED. HE STATES THEY SAID TO CALL WHEN HE IS DISCHARGED. PCP- DR CONTRERAS [facility]AC[facility]- [facility] [address] [facility]- NEBULIZER, PORTABLE AND STATIONARY UNIT. DISCUSSED ALBUTEROL MDI ORDER W/ PRIMARY NURSE NEVIN. PATIENT IS ON DUONEBS AT HOME QID. THE PULMONARY MD STATED TO DISCHARGE ON DUONEB IN HIS NOTE. THE PATIENT HAS BEEN ON 2L VIA NASAL CANNULA AT HOME. HE IS ON 2.5 TO 3L AT [facility]. PATIENT WANTS TO KNOW WHAT HIS OXYGEN SETTING SHOULD BE. NEVIN , PRIMARY NURSE, WILL CLARIFY W/ . TC TO [facility]. SPOKE W/ POLY AT [phone]. FAX [phone]. HOME HEALTH WILL CONTACT THE PATIENT REGARDING VISIT DATE. DCPIA - Discharge Planning Initial Assessment Updated by [id number]: Roseanna Garcia on 12/11/18 4:01 pm * Is the patient Alert and Oriented? Yes * How many steps to enter\\exit or inside your home? FIVE * PCP DR CONTRERAS * [facility] [address] * Preadmission Environment Home Alone * ADLs Independent * Equipment Nebulizer Oxygen * Other Equipment [employer] IS DME PROVIDER * List name and contact numbers for known caregivers / representatives who currently or will assist patient after discharge: KURT MIRANDA [phone] * Verbal permission to speak to the caregivers and representatives has been obtained from the patient. No * Community resources currently utilized Home Health * Please name any agencies selected above. [facility], [place] * Additional services required to return to the preadmission environment? Yes * Can the patient safely return to the preadmission environment? Yes * Has this patient been hospitalized within the prior 30 days at any hospital? No Last DP export: 12/11/18 3:06 p Patient Name: THANG MCDANIEL Page 97420 at 1656 All edits/amendments must be made on the electronic document DICTATION DATE: 12/11/181655 PATIENT FINANCIAL SERVICES SPECIALIST: ISIDRO 12/11/181655 RPT#: [id number] DC DATE:12/11/18 STATUS: DIS IN [facility] [address] [place] [address] END OF REPORT
--- NOTE | 2018-12-13 11:05 | MORECARE ---
CASE MANAGEMENT DISCHARGE SUMMARY PATIENT: THANG MCDANIEL UNIT: [id number] ADM DATE: 12/08/18 AGE: 68 : 49 SEX: M ROOM/BED: D.2215 AUTHOR: ALETHA,DOC PHYSICIAN: REFERRING PHYSICIAN: TRISTAN MORAN MD DATE OF SERVICE: 12/13/18 Discharge Plan Patient Name: THANG MCDANIEL Facility: [facility]:[place] : 1950 Planned Disposition: Home with Home Health Anticipated Discharge Date: 12/11/18 Discharge Date: 12/11/2018 Expected LOS: 3 Initial Reviewer: [email or web address] Initial Review Date: 12/08/2018 Generated: 12/13/18 12:05 pm Comments DCP- Discharge Planning Updated by [email or web address]: Roseanna Garcia on 12/11/18 3:[address] CM MET WITH PATIENT AT THE BEDSIDE. EXPLAINED MY ROLE AND RECEIVED VERBAL CONSENT TO PROCEED WITH ASSESSMENT. PATIENT LIVES ALONE. HE HAS 5 STEPS WITHOUT A RAIL TO ENTER HIS HOME. HE FEELS SAFE IN HIS HOME. HIS BROTHER, KURT, "LIVES RIGHT BEHIND HIM". KURT WILL BE PROVIDING THE TRANSPORTATION TO HOME. HE HAS [facility]. HE NOTIFIED THEM HE HAD BEEN ADMITTED. HE STATES THEY SAID TO CALL WHEN HE IS DISCHARGED. PCP- DR CONTRERAS PHARMACY- [facility] [address] [facility]- NEBULIZER, PORTABLE AND STATIONARY UNIT. DISCUSSED ALBUTEROL MDI ORDER W/ PRIMARY NURSE NEVIN. PATIENT IS ON DUONEBS AT HOME QID. THE PULMONARY MD STATED TO DISCHARGE ON DUONEB IN HIS NOTE. THE PATIENT HAS BEEN ON 2L VIA NASAL CANNULA AT HOME. HE IS ON 2.5 TO 3L AT [facility]. PATIENT WANTS TO KNOW WHAT HIS OXYGEN SETTING SHOULD BE. NEVIN , PRIMARY NURSE, WILL CLARIFY W/ . TC TO [facility]. SPOKE W/ POLY AT [phone]. FAX [phone]. HOME HEALTH WILL CONTACT THE PATIENT REGARDING VISIT DATE. DCPIA - Discharge Planning Initial Assessment Updated by [email or web address]: Roseanna Garcia on 12/11/18 4:01 pm * Is the patient Alert and Oriented? Yes * How many steps to enter\\exit or inside your home? FIVE * PCP DR CONTRERAS * [facility] [address] * Preadmission Environment Home Alone * ADLs Independent * Equipment Nebulizer Oxygen * Other Equipment [employer] IS DME PROVIDER * List name and contact numbers for known caregivers / representatives who currently or will assist patient after discharge: KURT MIRANDA [phone] * Verbal permission to speak to the caregivers and representatives has been obtained from the patient. No * Community resources currently utilized Home Health * Please name any agencies selected above. [facility], [place] * Additional services required to return to the preadmission environment? Yes * Can the patient safely return to the preadmission environment? Yes * Has this patient been hospitalized within the prior 30 days at any hospital? No Last DP export: 12/11/18 3:56 p Patient Name: THANG MCDANIEL Page 74082 at 1105 All edits/amendments must be made on the electronic document DICTATION DATE: 12/13/18 110 [place] REPRESENTATIVE: ISIDRO 12/13/18 110 RPT#: [id number] DC DATE:12/11/18 STATUS: DIS IN [facility] [address] [facility] [place] [address] END OF REPORT
== END 2018-12-11 16:21 | disposition home health service (06) | DRG 189 ==
LOC: D.ER 03:20 → D.EDHOLD 05:52 → D.MS 06:35
PROVIDERS: Family Medicine; Internal Medicine Pulmonary Disease; ADMIT Internal Medicine Nephrology; ATTEND Internal Medicine Nephrology
DX: J96.21 Acute and chronic respiratory failure with hypoxia (principal); J44.1 Chronic obstructive pulmonary disease with (acute) exacerbation; N17.9 Acute kidney failure, unspecified; I13.0 Hypertensive heart and chronic kidney disease with heart failure and stage 1 through stage 4 chronic kidney disease, or unspecified chronic kidney disease; J96.22 Acute and chronic respiratory failure with hypercapnia; Z99.81 Dependence on supplemental oxygen; I50.9 Heart failure, unspecified; E78.5 Hyperlipidemia, unspecified; K21.9 Gastro-esophageal reflux disease without esophagitis

== ENCOUNTER → 2019-01-21 13:25 | Outpatient (CLI) | payer MEDICARE ==
[2018-12-08 12:31] VITALS: BMI 15.8
[~2019-01-21 13:25] MED LIST changes: +ALBUTEROL SULF8.5 GM INH; +IPRAT-ALBUT 0.5-3 ML INH; +IPRAT-ALBUT 0.5-3 ML UPD; +LASIX40 MG PO; +OMEPRAZOLE20 M1 PO; +PREDNISONE10 MG PO
== END | disposition home or self-care (01) ==
LOC: D.RT 13:25
PROVIDERS: ATTEND Internal Medicine Pulmonary Disease
DX: J44.9 Chronic obstructive pulmonary disease, unspecified (principal)

== ENCOUNTER → 2019-03-09 09:06 | Outpatient (CLI) | payer MEDICARE ==
[2018-12-08 12:31] VITALS: BMI 15.8
--- NOTE | ~2019-03-09 | ST ---
PATIENT:THANG MCDANIEL MEDICAL RECORD: [id number] SEX: M LOCATION:[facility] ORDER #: ADMISSION DATE: 03/09/19 AGE OF PATIENT: 68 REFERRING PHYSICIAN: INTERPRETING PHYSICIAN: KARINA RUFF MD DATE OF SERVICE: 03/09/2019 PROCEDURE: Nuclear stress test. INDICATION: Angina and coronary artery disease, shortness of breath, hypertension. TECHNIQUE: He was exercised on standard Lexiscan protocol with 31 mCi of sestamibi injected at peak stress, 9 mCi used previously for rest images. FINDINGS: Gated SPECT reveals a preserved ejection fraction at 67% with good wall motioning and thickening and brightening throughout all segments. SPECT IMAGING: Cardiolite was used as myocardial perfusion agent. There is reversibility inferiorly in the septal and this includes the basal, mid, apical inferior segments as well as the basal septal, mid septal and apical septal segments. The degree of reversibility is moderate. The amount of myocardial involved is [id number]-id-[id number]. OVERALL IMPRESSION: This is an intermediate to high risk nuclear stress test with a fvkpolpa-dy-vsacu amount of myocardium involved in reversible ischemia inferiorly as well as septally suggestive of hemodynamically significant coronary artery disease. TRANSINT:[id number] Voice Confirmation ID: [id number] DOCUMENT ID: [id number] KARINA RUFF MD CC: [id number] DICTATION DATE: 03/11/19 1528 UROLOGY TEACHER: 03/12/19 0036 DEP CLI 03/09/19 [facility] [address] [place] [address]
== END | disposition home or self-care (01) ==
LOC: D.HCCARDIO 09:06
PROVIDERS: ATTEND Internal Medicine Interventional Cardiology
DX: I25.110 Atherosclerotic heart disease of native coronary artery with unstable angina pectoris (principal); R06.02 Shortness of breath; I10 Essential (primary) hypertension

== ENCOUNTER 2019-03-21 08:33 | Outpatient (CLI) | payer MEDICARE ==
[~2019-03-21] VITALS: Ht 170.2 cm; Wt 42.7 kg
--- NOTE | ~2019-03-21 | HEMODYNAMI ---
PATIENT:THANG MCDANIEL MEDICAL RECORD: [id number] : 48 LOCATION:[facility] ADMISSION DATE: 03/21/19 Generatedon:03/21/201911:09 Patient name: THANG MCDANIEL Patient #: [id number] : 1950 Date of study: 03/21/2019 Page: Of Hemodynamic Procedure Report Patient Data Patient Demographics Procedure consent was obtained First Name: THANG Gender: Male Last Name: VIOLETA : 1950 [facility] Initial: ASHLEY Age: 68 year(s) Patient #: [id number] Race: Unknown SSN: [id number] Additional ID: [id number] Contact details Address: [address] [place] [address] State: [place] City: [place] Zip code: [address] Admission Admission Data Admission Date: 03/21/2019 Admission Time: 8:33 Admit Source: Other Insurance Payor: Private health insurance Height (in.): 67 BSA: 1.47 (m2) Height (cm.): 170.18 BMI: 14.85 (kg/m2) Weight (lbs.): 94.8 Weight (kg.): 43 Lab Results Lab Result Date: 03/21/2019 Lab Result Time: 0:00 Biochemistry Name Units Result Min Max BUN mg/dl 27 --(----)-* 7 18 Creatinine mg/dl 0.9 --(-*--)-- 0.6 1.3 eGFR ml/min 88.65213 -*(----)-- 90 120 NONAFRICAN CBC Name Units Result Min Max Hemoglobin g/dl 13.5 --(*---)-- 13.5 17.5 Platelets 10^3/l 316 --(--*-)-- 130 400 Procedure Procedure Types Cath Procedure Diagnostic Procedure [facility] w/Coronaries FFR/IVUS FFR Initial Sedation Charges Moderate Sedation up to 30 minutes PCI Procedure Coronary Stent Coronary Stent Initial Peripheral Cath Diagnostic Procedure Abd/Extremity Extremities Right Lower Ext Arterio Peripheral vascular Intervention Stent Stent Iliac w/plasty Initial Procedure Description Procedure Date Procedure Date: 03/21/2019 Procedure Start Time: 10:34 Procedure End Time: 11:02 Procedure Staff Name Function Maldonado Bright MD Performing Physician Susanne Payne RT Monitor Magen Kuhn RT Scrub Joanne Izquierdo RT Scrub Junaid Busby RN Nurse Procedure Data Cath Procedure Fluoroscopy Diagnostic fluoroscopy Total fluoroscopy Time: 8.3 time: 8.3 min min Diagnostic fluoroscopy Total fluoroscopy dose: 829 dose: 829 mGy mGy Contrast Material Contrast Material Type Amount (ml) Isovue 300 157 Entry Location Entry Primary Successful Side Size Upsize Upsize Entry Closure Succes sful Closure Location (Fr) 1 (Fr) 2 (Fr) Remarks Device Remarks Femoral Right 6 Fr 6 Fr Exoseal artery Long Short Estimated blood loss: 5 ml Diagnostic catheters Device Type Used For End Catheter Placement MULTIPACK Pigtail 5 Fr LV Angiography catheter MULTIPACK JL 4.0 5Fr Left Coronary catheter Angiography MULTIPACK 3DRC 5Fr Right Coronary catheter Angiography Procedure Complications No complications Procedure Medications Medication Administration Route Dosage 0.9% NaCl I.V. 100 ml/hr Oxygen etCO2 Nasal cannula 2 l/min Heparin Flush Bag added to field 2 bags (1000units/500ml NS) Lidocaine 2% added to field 20 Versed I.V. 1 mg Fentanyl I.V. 50 mcg Heparin Bolus I.V. 5000 units Integrilin (Bolus I.V. 4 ml 2mg/ml) Integrilin (Bolus wasted 6 ml 2mg/ml) Versed I.V. 1 mg Fentanyl I.V. 50 mcg Plavix P.O. 600 mg Hemodynamics Rest BSA: 1.47 (m2) HGB: 13.5 (g/dl) O2 Consumption: Estimated: 173.75 (ml/min) O2 Co nsumption indexed: Estimated:118.2 (ml/min/m) Heart Rate: 76 (bpm) Snapshots Pre Cath Intra NCS Post Cath Vital Signs Time Heart Resp SPO2 etCO2 NIBP (mmHg) Rhythm Pain Sedation Rate (ipm) (%) (mmHg) Status Level (bpm) 10:19:41 71 22 99 15 142/68(116) NSR 0 (11) 10(A) , No pain 10:23:50 68 20 99 0 118/69(87) NSR 0 (11) 10(A) , No pain 10:27:54 68 19 98 15.7 113/66(87) NSR 0 (11) 10(A) , No pain 10:31:56 68 23 98 4.5 108/67(88) NSR 0 (11) 10(A) , No pain 10:36:00 68 20 97 25.5 105/55(83) NSR 0 (11) 10(A) , No pain 10:39:59 67 19 98 17.2 107/62(87) NSR 0 (11) 10(A) , No pain 10:44:01 74 20 98 11.2 107/57(84) NSR 0 (11) 9(A) , No pain 10:48:03 72 17 100 16.5 113/59(91) NSR 0 (11) 9(A) , No pain 10:52:04 79 24 99 12.7 126/65(106) NSR 0 (11) 9(A) , No pain 10:56:08 74 22 100 6.7 133/71(106) NSR 0 (11) 10(A) , No pain 11:00:14 74 21 99 9.7 133/72(100) NSR 0 (11) 10(A) , No pain Medications Time Medication Route Dose Verified Delivered Reason Notes Effectiveness by by 10:12:20 0.9% NaCl I.V. 100 Junaid Junaid Per physician ml/hr Qi Busby RN RN 10:12:30 Oxygen etCO2 2 Junaid Junaid for low 02 sats Nasal l/min Qi Busby cannula RN RN 10:12:40 Heparin Flush added 2 Junaid Junaid used for Bag to bags Qi Busby procedure (1000units/500ml field RN RN NS) 10:12:52 Lidocaine 2% added 20ml Junaid Junaid for local to vial Qi Busby anesthetic field RN RN 10:33:08 Versed I.V. 1 mg Junaid Junaid for sedation Qi Busby RN RN 10:33:17 Fentanyl I.V. 50 Junaid Junaid for sedation mcg Qi Busby RN RN 10:38:34 Heparin Bolus I.V. 5000 Junaid Junaid for units Qi Busby anticoagulation RN RN 10:39:49 Integrilin I.V. 4 ml Junaid Juniad for (Bolus 2mg/ml) Qi Busby antiplatelet RN RN therapy 10:40:02 Integrilin wasted 6 ml Junaid Junaid to sharp's (Bolus 2mg/ml) Qi Busby RN RN 10:40:40 Versed I.V. 1 mg Junaid Junaid for sedation Qi Busby RN, RN 10:40:47 Fentanyl I.V. 50 Junaid Junaid for sedation mcg Qi Busby RN, RN 11:02:32 Plavix P.O. 600 Junaid Junaid for mg Qi Busby antiplatelet RN RN therapy Procedure Log Time Note 9:55:47 Susanne Payne RT(R) sent for patient. Start room use. 10:03:08 Admit Source: Other 10:03:41 Procedure Status Elective Heart Cath (OP). 10:04:36 Time tracking: Regular hours (M-F 7:00 - 5:00) 10:04:40 Plan of Care:Hemodynamics will remain stable., Cardiac rhythm will remain stable., Comfort level will be maintained., Respiratory function will remain adequate., Patient/ family verbilizes understanding of procedure., Procedure tolerated without complication., Recovers from procedure without complications.. 10:05:27 Informed consent obtained and on chart 10:08:41 Patient received from Pre/Post Procedure Room to CCL 2 Alert and oriented. Tansferred to table in Supine position. 10:08:47 Warm blankets applied, and ugo hugger turned on for patient comfort. 10:08:51 Correct patient and procedure confirmed by team. 10:08:54 ECG and BP/O2 sat monitors applied to patient. 10:09:20 2) 60-89 Mildly reduced kidney function, and other findings (as for stage 1) point to kidney disease. 10:09:23 Maximum allowable contrast dose (3.7 X eGFR X 0.75)246 ml. 10:10:59 Patient Weight : 94.8 lbs 10:11:24 Patient Height : 67 inches 10:12:03 Insurance Payor : Private health insurance 10:12:20 0.9% NaCl 100 ml/hr I.V. was administered by Junaid Busby RN; Per physician; 10:12:30 Oxygen 2 l/min etCO2 Nasal cannula was administered by Junaid Lorigan RN; for low 02 sats; 10:12:40 Heparin Flush Bag (1000units/500ml NS) 2 bags added to field was administered by Junaid Busby RN; used for procedure; 10:12:52 Lidocaine 2% 20ml vial added to field was administered by Junaid Busby RN; for local anesthetic; 10:14:45 Lab Result : Creatinine 0.9 mg/dl 10:14:45 Lab Result : BUN 27 mg/dl 10:14:45 Lab Result : eGFR NONAFRICAN 88.41789 ml/min 10:14:45 Lab Result : Platelets 316 10^3/l 10:14:45 Lab Result : Hemoglobin 13.5 g/dl 10:15:09 Baseline sample Acquired. 10:15:09 Vital chart was started 10:15:16 Rhythm: sinus rhythm 10:15:17 Full Disclosure recording started 10:15:26 H&P Date Dictated: 03/01/2019 Within 30 days and on chart., H&P Addendum completed by physician on day of procedure. (MUST COMPLETE FOR ALL OUTPATIENTS). 10:15:27 Pre-procedure instructions explained to patient. 10:15:27 Pre-op teaching completed and patient verbalized understanding. 10:15:29 Family in waiting room. 10:15:30 Patient NPO since Midnight. 10:15:32 Is the patient allergic to Iodine/contrast media? No. 10:15:33 Is patient on blood thinner?No 10:15:36 ACC The patient was administered the following blood thiners within the last 24 hours: None 10:15:38 Patient diabetic? No. 10:15:40 Previous problem with sedation/anesthesia? No ? 10:15:41 Snore? Yes 10:15:42 Sleep apnea? No 10:15:43 Deviated septum? No 10:15:43 Opens mouth fully? Yes 10:15:44 Sticks out tongue? Yes 10:15:49 Airway obstruction? Yes COPD 10:15:52 Dentures? Yes IN 10:16:01 Pre procedure: right dorsailis pedis pulse 1+ Palpable, but thready & weak; easily obliterated 10:16:04 Pre procedure: left dorsailis pedis pulse 1+ Palpable, but thready & weak; easily obliterated 10:16:08 Patient pain scale 0/10 ?. 10:16:12 IV patent on arrival in left forearm with 0.9% NaCl at KVO. 10:16:14 Lab results completed and on chart. 10:16:18 Bilateral groins area was prepped with chlora-prep and draped in sterile fashion 10:16:20 Alarms reviewed by R. N. 10:16:21 Sharps counted by scrub and verified by R.N. 10:16:25 Use device set Femoral Dx 10:16:27 Tegaderm 4 x 4 ([id number]) opened to sterile field. 10:16:28 ACIST Manifold (85057) opened to sterile field. 10:16:28 ACIST Hand Control (31599) opened to sterile field. 10:16:29 ACIST Syringe (93228) opened to sterile field. 10:16:30 Bag Decanter (2002S) opened to sterile field. 10:16:30 Medline Cath Pack ([id number]) opened to sterile field. 10:16:32 DIAGNOSTIC Multipack 5Fr catheter set ([id number]) opened to sterile field. 10:16:33 COMFORT Guide Wire (668-992) opened to sterile field. 10:22:56 Physician paged 10:25:11 Zero performed for pressure channel P1 10:30:46 Physician arrived 10:30:47 --------ALL STOP TIME OUT------ 10:30:53 Final Timeout: patient, procedure, and site verified with staff and physician. All members of the team are in agreement. 10:30:56 Bilateral groins site verified by team. 10:30:59 Fire Safety Assessment: A--An alcohol-based skin anteseptic being used preoperatively., C--Open oxygen or nitrous oxide is being used., D--An ESU, laser, or fiber-optic light is being used. 10:31:04 Physical assessment completed. ASA score P 2 - A patient with mild systemic disease as per Maldonado Bright MD. 10:33:08 Versed 1 mg I.V. was administered by Junaid Busby RN; for sedation; 10:33:17 Fentanyl 50 mcg I.V. was administered by Junaid Busby RN; for sedation; 10:34:07 Procedure started. 10:34:15 Local anesthetic to right femoral artery with Lidocaine 2% by Maldonado Bright MD.INITIAL ACCESS ONLY 10:34:46 SHEATH 6FR Arapaho (ASZ299) opened to sterile field. 10:35:05 SHEATH 6FR Brite Tip 35cm ([id number]) opened to sterile field. 10:35:23 A 6 Fr Long sheath was inserted into the Right Femoral artery 10:35:30 Right leg runoff performed. 10:37:11 J WIRE wire advanced. 10:38:34 Heparin Bolus 5000 units I.V. was administered by Junaid Busby RN; for anticoagulation; 10:39:47 Procedure type changed to Cath procedure, Diagnostic procedure, LHC, LHC w/Coronaries, FFR/IVUS, FFR Initial, Sedation Charges, Moderate Sedation up to 30 minutes, PCI procedure, Coronary Stent, Coronary Stent Initial, Peripheral Cath Diagnostic Procedure, Abd/Extremity, Extremities, Right Lower Ext Arterio, Peripheral vascular Intervention, Stent, Stent Iliac w/plasty Initial 10:39:49 Integrilin (Bolus 2mg/ml) 4 ml I.V. was administered by Junaid Busby RN; for antiplatelet therapy; 10:40:02 Integrilin (Bolus 2mg/ml) 6 ml wasted was administered by Junaid Busby RN; to sharp's; 10:40:19 Place stent Inflation Number: 1 A NEISHA 6 x 39 x 135 stent ([id number]) was prepped and advanced across the Mid Common Iliac, Right . The stent was deployed at 13 MILANA for 0:10 (min:sec) . 10:40:40 Versed 1 mg I.V. was administered by Junaid Busby RN; for sedation; 10:40:47 Fentanyl 50 mcg I.V. was administered by Junaid Busby RN; for sedation; 10:41:10 Stent catheter was removed intact over wire. 10:41:13 Wire removed. 10:41:23 A MULTIPACK Pigtail 5 Fr catheter was advanced over the wire and used for LV Angiography. 10:41:28 LV hemodynamics recorded. 10:41:29 LV gram done using CARVALHO 10:41:31 Injector settings: Ml/sec: 5, Volume: 15, 10:41:36 EF : 60 % 10:42:05 Catheter removed. 10:42:12 A MULTIPACK JL 4.0 5Fr catheter was advanced over the wire and used for Left Coronary Angiography. 10:42:18 LCA angiography performed. 10:42:20 Injector settings: Ml/sec: 3, Volume: 6, 10:43:49 Catheter removed. 10:43:56 A MULTIPACK 3DRC 5Fr catheter was advanced over the wire and used for Right Coronary Angiography. 10:44:01 RCA angiography performed. 10:44:03 Injector settings: Ml/sec: 3, Volume: 6, 10:44:07 Catheter removed. 10:44:10 ACCDominant side:Right 10:44:32 INFLATOR Merit BasixCompak (LL6939) opened to sterile field. 10:44:32 GUIDE 6FR XBLAD 3.5 catheter ([id number]) opened to sterile field. 10:44:33 [employer].rata Plus pressure wire (34406D) opened to sterile field. 10:44:49 6 Fr XBLAD 3.5 guide catheter was inserted over the wire 10:44:55 FFR/IFR wire advanced. 10:45:03 Baseline FFR 1. 10:46:39 Wire advanced across lesion. 10:49:47 mLAD lesion measured at 0.22 with IFR 10:52:07 Place stent Inflation Number: 1 A COBRA RX 2.5 X 18 Stent was prepped and advanced across the Mid LAD 80. The stent was deployed at 13 MILANA for 0:10 (min:sec) . 10:52:19 Stent catheter was removed intact over wire. 10:53:26 Pre PCI Site: [place] mLAD has 80% stenosis. 10:53:32 Post PCI Site: [place] mLAD has 0% stenosis. 10:53:46 ACC Pre-intervention KANNAN Flow is 3. 10:53:52 ACC Post-intervention KANNAN Flow is 3. 10:53:58 PCI Cath status Elective 10:54:13 Inflate balloon Inflation number: 2 A EUPHORA 2.5 x 15 Balloon ([id number]) was prepped and advanced across the Mid LAD , then inflated to 15 MILANA for 0:10 (min:sec) . 10:54:53 Balloon removed over the wire. 10:57:44 Place stent Inflation Number: 1 A INTEGRITY RX 2.5 x 08 stent ([id number]) was prepped and advanced across the Dist LAD 80. The stent was deployed at 17 MILANA for 0:10 (min:sec) 0. 10:58:46 Stent catheter was removed intact over wire. 10:58:47 ACT drawn and resulted at 343 seconds. (normal therapeutic range 180-240 seconds). 10:58:48 Wire removed. 10:58:48 Guide catheter removed. 10:59:17 Sheath upsized to a 6 Fr Short. 10:59:26 Sheath removed intact; hemostasis achieved with Exoseal to the Right Femoral artery. 10:59:34 EXOSEAL 6Fr (EX600) opened to sterile field. 10:59:39 Procedure ended.(Physican Out) 11:00:10 Fluoroscopy time 08.30 minutes. 11:00:14 Flurop Dose total: 829 11:00:14 Fluoroscopy dose: 829 mGy 11:00:35 Dose Area Product 37508 mGy/cm. 11:00:51 Contrast amount:Isovue 300 157ml. 11:00:58 Sharps counted by scrub and verified by R.N. 11:01:00 Insertion/operative site no bleeding no hematoma. 11:01:04 Post-op/insertion site Right Femoral artery dressed using a 4 x 4 and Tegaderm. 11:01:07 Post right femoral artery:stable 11:01:11 Post Procedure Pulses reassessed and unchanged 11:01:15 Post procedure rhythm: unchanged. 11:01:18 Estimated blood loss: 5 ml 11:01:21 Post procedure instruction explained to patient.Patient verbalizes understanding. 11:01:22 Patient needs reinforcement of post procedure teaching. 11:02:29 Procedure and supply charges have been captured, reviewed, submitted and are correct. 11:02:32 Plavix 600 mg P.O. was administered by Junaid Busby RN; for antiplatelet therapy; 11:02:34 Procedure Complication : No complications 11:02:37 Vital chart was stopped 11:02:38 See physician's report for complete and final results. 11:02:43 Report given to Pre/Post Procedure Room. 11:02:46 Patient transfered to Pre/Post Procedure Room with Stretcher. 11:02:47 Procedure ended. 11:02:47 Full Disclosure recording stopped 11:02:54 ACC-PCI Only Patient was given prescriptions, or instructed by Maldonado Bright MD to start/continue the following medications upon discharge: Plavix 11:02:55 End room use (Document Last) Intervention Summary Intervention Notes Time ActionType Lesion and Equipment Action# Pressure Duration Attributes Used 10:40:19 Place stent Mid Common NEISHA 6 x 1 13 00:10 Iliac, 39 x 135 Right stent ([id number]) 10:52:07 Place stent Mid LAD COBRA RX 2.5 1 13 00:10 X 18 Stent 10:54:13 Inflate Mid LAD EUPHORA 2.5 2 15 00:10 balloon x 15 Balloon ([id number]) 10:57:44 Place stent Dist LAD INTEGRITY RX 1 17 00:10 2.5 x 08 stent ([id number]) Device Usage Item Name Manufacture Quantity Catalog Hospital Part Current Minimal Lot# / Number Charge Number Stock Stock Serial# Code Tegaderm 4 x 4 3M 1 1626W 236976 235965 379573 5 (1626W) ACIST Manifold Acist 1 69916 430213 715224 899441 5 (11238) Medical Systems Inc ACIST Hand Acist 1 54178 035381 107053 284694 5 Control Medical (60945) Systems Inc ACIST Syringe Acist 1 92057 429890 309700 415548 20 (78835) Medical Systems Inc Bag Decanter Microtek 1 2002S 499212 68385 792221 5 (2002S) Medical Inc. Medline Cath Medline 1 [id number] 354308 18238 075262 5 Pack ([id number]) DIAGNOSTIC Cardinal 1 VB1317 929074 99352 637269 30 Multipack 5Fr Health catheter set (ZJ1473) EMERALD Guide Cardinal 1 502-455 066666 886850 054037 5 Wire (502-455) Health SHEATH 6FR Terumo 1 MHN778 262856 132571 885138 40 Arapaho (JYB072) SHEATH 6FR Cardinal 1 259877E 450869 409394 875445 1 Brite Tip 35cm Health (312902A) NEISHA 6 x 39 Cardinal 1 [id number] 746007 88978 439074 5 [id number] x 135 stent Health ([id number]) MULTIPACK Cardinal 1 847348 5 Pigtail 5 Fr Health catheter MULTIPACK JL Cardinal 1 110024 5 4.0 5Fr Health catheter MULTIPACK 3DRC Cardinal 1 450442 5 5Fr catheter Health INFLATOR Merit Merit 1 LB0778 889784 247022 877719 15 BasixCompak Medical (ZE4549) GUIDE 6FR Cardinal 1 36612275 966626 624805 627535 10 XBLAD 3.5 Health catheter ([id number]) Hardin Hardin 1 27691J 509412 672737649 021418 5 Verrata Plus pressure wire (80532M) COBRA RX 2.5 X Celonova 1 892757 458567729 47565231 5 [id number] 18 stent Biosciences () EUPHORA 2.5 x Medtronic 1 [id number] 594970 465651 066298 5 [id number] 15 Balloon ([id number]) INTEGRITY RX Medtronic 1 [id number] 532179 270584 169781 5 [id number] 2.5 x 08 stent ([id number]) EXOSEAL 6Fr Cardinal 1 EX600 103150 288475 429627 10 (EX600) Health Signature Audit Brusly Stage Time Signature Unsigned Intra-Procedure 03/21/2019 Susanne Payne 11:08:40 AM RT(R) Signatures Performing Physician : Signature : Maldonado Bright MD Date : Time : Monitor : Susanne Payne RT Signature : Date : Time : Nurse : Junaid Busby Signature : RN Date : Time : [facility] [address] [place] [address]
[2019-03-21 09:02] VITALS: BP 156/70; Ht 170.2 cm; Wt 42.7 kg
[2019-03-21 09:15] LABS: BASOPHILS 0.9 % (0-2); EOSINOPHILS 4.1 % (0-7); HEMATOCRIT 39.5 % (42.0-54.0); HEMOGLOBIN 13.5 g/dL (13.5-17.5); IMMATURE GRANULOCYTES 0.1 % (0-5); LYMPHOCYTES 13.4 % (15-50); MCH 30.7 pg (26.0-34.0); MCHC 34.2 g/dL (31.0-37.0); MCV 89.8 fL (80.0-100.0); MEAN PLATELET VOLUME 9.1 fL (7.4-10.4); MONOCYTES 8.5 % (2-11); PLATELET COUNT 316 10x3/uL (130-400); RDW 13.6 % (11.5-14.5); WBC 6.9 10x3/uL (4.8-10.8)
[2019-03-21 09:32] LABS: CALC OSMOLALITY 280 mosm/kg (275-300); CALCIUM 9.7 mg/dL (8.5-10.1); CARBON DIOXIDE 30.3 mmol/L (21.0-32.0); CHLORIDE - SERUM 101 mmol/L (98-107); CREATININE - SERUM 0.9 mg/dL (0.6-1.3); GLUCOSE 91 mg/dL (74-106); POTASSIUM - SERUM 4.5 mmol/L (3.5-5.1); SODIUM 138 mmol/L (136-145); UREA NITROGEN 27 mg/dL (7-18); eGFR NON AFRICAN AMERICAN 89 mL/min (90-120)
[2019-03-21 10:25] LABS: CHOL - HDL RATIO 2.7 ratio (2.3-4.9); LDL-HDL RATIO 1.4 ratio (1.5-3.5)
[2019-03-21] MEDS ORDERED: PLAVIX75 MG PO (11:26)
--- NOTE | 2019-03-21 11:39 | NUR ---
PT SLEEPING, RESP WITH EASE ON O2 AT 2LPM VIA NC. NSR, RATE 68. BP IS 145/81. FEMSTOP IS CDI, PEDAL PULSES PALPABLE. HOB IS FLAT, BED IS LOW, SIDE RAILS UP X2, CALL LIGHT IN REACH. FAMILY MEMBER AT BEDSIDE.
--- NOTE | 2019-03-21 11:52 | NUR ---
PT SLEEPING, VSS. FEMSTOP CDI, PEDAL PULSES PALPABLE. HOB IS FLAT, FAMILY AT BEDSIDE, CALL LIGHT IN REACH.
--- NOTE | 2019-03-21 12:14 | NUR ---
PT ALERT, DENIES ANY C/O. VSS, FEMSTOP INTACT WITH NO BLEEDING OR HEMATOMA NOTED. PEDAL PULSES PALPABLE. HOB IS FLAT, BROTHER AT BEDSIDE.
--- NOTE | 2019-03-21 12:31 | NUR ---
FEMSTOP PRESURE WEANED BY 30 WITH NO BLEEDING OR HEMATOMA NOTED. PEDAL PULSES PALPABLE. HOB IS FLAT, VSS. PT DENIES ANY C/O. BROTHER AT BEDSIDE.
--- NOTE | 2019-03-21 13:18 | NUR ---
1245 FEMSTOP PRESSURE WEANED BY 20 WITH NO BLEEDING OR HEMATOMA NOTED. 1300 FEMSTOP PRESSURE WEANED BY 20 WITH NO BLEEDING OR HEMATOMA NOTED. 1315 FEMSTOP PRESSURE WEANED BY 20 WITH NO BLEEDING OR HEMATOMA NOTED. PULSES PALPABLE. VSS, PT DENIES ANY C/O.
--- NOTE | 2019-03-21 13:42 | NUR ---
ALL AIR IS WEANED FROM FEMSTOP WITH NO BLEEDING NOTED. PEDAL PULSES PALPABLE. HOB IS FLAT, VSS. PT IS ALERT AND DENIES ANY C/O.
--- NOTE | 2019-03-21 13:54 | NUR ---
4X4 AND TEGADERM DRESSING HAS BEEN PLACED TO CATH SITE.
--- NOTE | 2019-03-21 14:29 | NUR ---
1410 HOB ELEVATED 30 DEGREES, SANDWICH AND PO FLUIDS SERVED. DRESSING CDI, PEDAL PULSES PALPABLE. PT IS ALERT AND DENIES ANY C/O. BROTHER AT BEDSIDE. 1425 DRESSING REMAINS CDI, HOB FULLY ELEVATED.
--- NOTE | 2019-03-21 15:07 | NUR ---
1445 PT HAS DINESH SANDWICH AND PO FLUIDS WITH NO C/O NAUSEA. DRESSING CDI TO RIGHT GROIN, AREA IS SOFT AND NONTENDER. PEDAL PULSES PALPABLE. IV DC'D WITH CATH INTACT AND DC INSTRUCTIONS REVIEWED WITH PT AND BROTHER WHO VERBALIZE UNDERSTANDING. PLAVIX PRESCRIPTION TO PT AND PT AND BROTHER VERBALIZE UNDERSTANDING OF PT STARTING THIS MEDICATION TOMORROW. PT HAS VOIDED APPROX [phone] CC CLEAR YELLOW URINE TO URINAL. 1500 ASSISTED PT WITH DRESSING FOR DC TO HOME. PT IS ALERT AND DENIES ANY C/O. PT ESCORTED TO PRIVATE AUTO VIA WC BY NURSE WITH BROTHER DRIVING HIM HOME. PT HAS ALL PERSONAL BELONINGS AND DC INSTRUCTIONS AT TIME OF DC TO HOME.
--- NOTE | 2019-03-22 12:04 | OP ---
PATIENT NAME: THANG MCDANIEL MEDICAL RECORD: [id number] :48 LOCATION:D.CAT ADMISSION DATE: SURGEON: KARINA RUFF MD DATE OF OPERATION: 03/21/2019 PROCEDURES: 1. PTCA stent LAD. 2. IFR. 3. Left heart catheterization. 4. Selective coronary angiography. 5. Left ventriculogram. 6. CEMENT PATCHER stent right iliac. 7. Right iliac angiography. INDICATION: Angina and coronary artery disease and peripheral vascular disease. PROCEDURE IN DETAIL: After informed consent was obtained and after a detailed description of risks, benefits as well as alternative therapies, the patient elected to proceed with angiogram and angioplasty. FINDINGS: The right iliac had greater than 80% stenosis. We could not advance the sheath through this stenosis to perform the initial angiography, hence CEMENT PATCHER stent of the right iliac was undertaken with a 6 x 29 Cordis Joaquina stent taken to 13 atmospheres. Result was 0% residual stenosis. Catheter was then able to be advanced. Left ventriculogram was performed in standard 30-degree CARVALHO view, reveals good cardiac wall motion, ejection fraction is 60%. SELECTIVE CORONARY ANGIOGRAPHY: 1. Left main showed no significant angiographic disease. 2. Left anterior descending has previously placed stents, these are widely patent; however, there is greater than 80% stenosis in the mid vessel. An IFR was markedly abnormal. 3. Left circumflex shows moderate irregularities, but no flow-limiting stenosis. 4. The right coronary has previously placed stents, these are widely patent with no significant restenosis. No disease elsewise throughout the RCA or its branches. CEMENT PATCHER STENT OF THE LAD: Stents used were 2.5 x 18 mm Cobra and a 2.5 x 8 mm Integrity. Result was 0% residual stenosis. OVERALL IMPRESSION: Successful percutaneous transluminal coronary angioplasty stent of the left anterior descending going from greater than 80% initial stenosis with markedly abnormal IFR to 0% residual stenosis. TRANSINT:[id number] Voice Confirmation ID: [id number] DOCUMENT ID: [id number] OPERATIVE REPORT [id number] THANG MCDANIEL JEFFREY MD at 1204 CC: [id number] DICTATION DATE: 03/21/19 1107 WASTEWATER TREATMENT SUPERVISOR: 03/21/19 1127 DEP CLI 03/21/19 [place] [id number] [place] [id number]
--- NOTE | 2019-04-01 10:47 | OP ---
PATIENT NAME: THANG MCDANIEL MEDICAL RECORD: [id number] :48 LOCATION:D.CAT ADMISSION DATE: SURGEON: KARINA RUFF MD DATE OF OPERATION: 03/21/2019 ADDENDUM Right iliac angiography was performed. There was initially 80% stenosis, after the intervention 0% residual stenosis. TRANSINT:[id number] Voice Confirmation ID: [id number] DOCUMENT ID: [id number] KARINA RUFF MD at 1047 CC: [id number] DICTATION DATE: 03/29/19 1211 CARE MANAGEMENT SPECIALIST: 03/29/19 1216 DEP CLI 03/21/19 [place] [id number] [place] [address]
== END 2019-03-21 15:00 | disposition home or self-care (01) ==
LOC: D.CATH 08:33
PROVIDERS: ATTEND Internal Medicine Interventional Cardiology
DX: I25.119 Atherosclerotic heart disease of native coronary artery with unspecified angina pectoris (principal); I70.201 Unspecified atherosclerosis of native arteries of extremities, right leg

== ENCOUNTER 2019-10-06 09:18 | Inpatient (IN) | payer MEDICARE ==
[~2019-10-06] VITALS: Ht 170.2 cm; Wt 49.1 kg
[2019-10-06] VITALS (16 sets, daily range): BP systolic 91–131; BP diastolic 58–76; BMI 16.0
--- NOTE | ~2019-10-06 | EC ---
PATIENT:THANG MCDANIEL DATE OF SERVICE: 10/06/19 SEX: M MEDICAL RECORD: [id number] DATE OF : [birth year] LOCATION:D.M2 D.210 AGE OF PATIENT: 69 ADMISSION DATE: 10/06/19 REFERRING PHYSICIAN: INTERPRETING PHYSICIAN: KARINA RUFF MD ECHOCARDIOGRAM REPORT ECHO CHARGES 4 ECHO COMPLETE Date: 10/07/19 CLINICAL DIAGNOSIS: SOB ECHOCARDIOGRAPHIC MEASUREMENTS (adult normal given) AC root (d.<3.7cm) 2.5 cm LV Septum d (<1.2 cm> 0.8 cm Valve Excursion 1.3 cm LV Septum (systole) 1.0 cm Left Atria (s.<4.0cm> 3.0 cm LVPW d(<1.2cm) 1.0 cm RV (d.<2.3cm) 3.7 cm LVPW (sytole) 1.1 cm LV diastole(<5.6CM) 4.4 cm MV E-F(>70mm/sec) cm LV systole 3.7 cm LVOT Diameter 1.8 cm MV exc.(>10mm) cm Est.ejection fraction (50-75%) % DOPPLER: LVIT cm/sec A 72 cm/sec E 59 cm/sec LA cm/sec RVSP 35.0 mmHg LVOT 98 cm/sec AOP1/2T m/s Asc. Ao 159 cm/sec RVOT cm/sec RA cm/sec PA cm/sec AV Gradient Peak 10.2 mmHg AV Mean 3.8 mmHg AV Area 1.7 cm MV Gradient Peak 3.8 mmHg MV Mean 1.2 mmHg MV Area cm COMMENTS: Technical Training Coordinator: Greg [facility] Manager Interventional: Robb Clement TAPE# PACS Pericardial Effusion N DATE OF SERVICE: 10/07/2019 FINDINGS: 1. Left ventricular chamber is within normal limits. Left ventricular systolic function is normal at 55%. 2. Left atrium, right atrium, and right ventricular chamber sizes are within normal limits. 3. Valvular structures have normal structure and motion. 4. Doppler interrogation reveals only trace to mild regurgitation, mild tricuspid regurgitation, no other valvular insufficiency or stenosis. ECHOCARDIOGRAM REPORT [id number] THANG MCDANIEL 5. No evidence of pericardial effusion or left ventricular thrombus. TRANSINT:[id number] Voice Confirmation ID: [id number] DOCUMENT ID: [id number] KARINA RUFF MD CC: [id number] DICTATION DATE: 10/07/19 1535 E LEARNING DEVELOPER: 10/07/192057 ADM IN [facility] [address] [place] [id number]
[2019-10-06 09:56] LABS: APTT 31.5 SECONDS (22.8-39.4); BASOPHILS 0.1 % (0-2); EOSINOPHILS 0.1 % (0-7); HEMATOCRIT 37.7 % (42.0-54.0); HEMOGLOBIN 12.6 g/dL (13.5-17.5); IMMATURE GRANULOCYTES 0.7 % (0-5); LYMPHOCYTES 2.8 % (15-50); MCHC 33.4 g/dL (31.0-37.0); MCV 89.8 fL (80.0-100.0); MEAN PLATELET VOLUME 9.1 fL (7.4-10.4); MONOCYTES 7.4 % (2-11); NEUTROPHILS 88.9 % (40-80); PLATELET COUNT 332 10x3/uL (130-400); RDW 13.7 % (11.5-14.5); WBC 15.9 10x3/uL (4.8-10.8)
[2019-10-06 09:57] LABS: INR 1.15 (0.85-1.17); PROTIME 14.6 SECONDS (11.6-15.0)
[2019-10-06 10:01] LABS: ALBUMIN 2.1 g/dL (3.4-5.0); ALKALINE PHOSPHATASE 86 U/L (30-120); ALT (SGPT) 17 U/L (10-68); BILIRUBIN - TOTAL 0.61 mg/dL (0.2-1.3); CALC OSMOLALITY 275 mosm/kg (275-300); CALCIUM 9.1 mg/dL (8.5-10.1); CARBON DIOXIDE 38.6 mmol/L (21.0-32.0); CHLORIDE - SERUM 93 mmol/L (98-107); CREATININE - SERUM 0.9 mg/dL (0.6-1.3); GLUCOSE 119 mg/dL (74-106); MAGNESIUM - SERUM 2.1 mg/dL (1.8-2.4); PRO BNP 834 pg/mL (0-125); SODIUM 136 mmol/L (136-145); UREA NITROGEN 22 mg/dL (7-18); eGFR NON AFRICAN AMERICAN 89 mL/min (90-120)
[2019-10-06 10:03] LABS: D-DIMER-QUANTITATIVE 3.32 ug/mLFEU (0.20-0.54)
[2019-10-06 10:17] LABS: LIPASE 25 U/L (73-393); TROPONIN-I < 0.017 ng/mL (0.000-0.060)
[2019-10-06 10:20] LABS: POTASSIUM - SERUM 2.5 mmol/L (3.5-5.1)
--- NOTE | 2019-10-06 11:32 | NUR ---
DR MCKEON AWARE OF CONSULT
--- NOTE | 2019-10-06 11:51 | NUR ---
ROCEPHIN STOPPED AT 1115
--- NOTE | 2019-10-06 13:20 | NUR ---
DR MCKEON AT BEDSIDE
--- NOTE | 2019-10-06 19:42 | NUR ---
SUPINE IN BED, A&OX4. DENIES N/V/D/PAIN. 6L O2 IN USE VIA NC. DENIES NEEDS, CONTINUE PLAN OF CARE.
[2019-10-07] VITALS (13 sets, daily range): BP systolic 105–154; BP diastolic 63–84; Ht 170.2 cm; Wt 49.1 kg
--- NOTE | 2019-10-07 00:36 | NUR ---
SUPINE IN BED, RESPIRATIONS EVEN, NONLABORED. SPO2 90% ON 2L NC. NO S/SX OF DISTRESS, CONTINUE TO MONITOR.
--- NOTE | 2019-10-07 02:00 | NUR ---
NO S/SX OF DISTRESS, VS STABLE. DENIES PAIN/DISCOMFORT/SOB. NO NEEDS AT THIS TIME, WILL CONTINUE TO MONITOR.
--- NOTE | 2019-10-07 03:36 | NUR ---
I have reviewed this patient and I concur with the Shift Assessment completed by the Licensed Practical Nurse today this shift.
[2019-10-07 03:50] LABS: BASOPHILS 0.1 % (0-2); EOSINOPHILS 0 % (0-7); HEMATOCRIT 33.1 % (42.0-54.0); IMMATURE GRANULOCYTES 0.5 % (0-5); MCH 30.1 pg (26.0-34.0); MCHC 33.2 g/dL (31.0-37.0); MCV 90.4 fL (80.0-100.0); MONOCYTES 2.7 % (2-11); NEUTROPHILS 92.7 % (40-80); PLATELET COUNT 286 10x3/uL (130-400); RBC 3.66 10x6/uL (4.20-6.10); RDW 13.8 % (11.5-14.5)
[2019-10-07 03:56] LABS: WBC 10.9 10x3/uL (4.8-10.8)
[2019-10-07 04:07] LABS: CALCIUM 8.7 mg/dL (8.5-10.1); CARBON DIOXIDE 35.5 mmol/L (21.0-32.0); CHLORIDE - SERUM 95 mmol/L (98-107); CREATININE - SERUM 0.9 mg/dL (0.6-1.3); MAGNESIUM - SERUM 2.1 mg/dL (1.8-2.4); PHOSPHOROUS 2.6 mg/dL (2.5-4.9); SODIUM 134 mmol/L (136-145); UREA NITROGEN 25 mg/dL (7-18); eGFR NON AFRICAN AMERICAN 89 mL/min (90-120)
[2019-10-07 04:09] LABS: CALC OSMOLALITY 276 mosm/kg (275-300); GLUCOSE 190 mg/dL (74-106)
--- NOTE | 2019-10-07 14:45 | NUR ---
TRANSFER FROM ICU BY BED. OREINTED TO ROOM. CALL LIGHT IN REACH. WILL CONT. PLAN OF CARE.
--- NOTE | 2019-10-07 19:00 | NUR ---
REPORT RECEIVED. BEDSIDE SHIFT REPORT COMPLETE. PT LAYING IN BED RR EVEN AND UNLABORED. FAMILY AT BEDSIDE. NO VOICED C/O OR CONCERNS AT THIS TIME. CALL LIGHT IN REACH. WILL CTM.
[2019-10-08] VITALS: BP 138/75
--- NOTE | 2019-10-08 03:18 | NUR ---
PT RESTING QUIETLEY. NO NEEDS EXPRESSED. NO CHANGES OBSERVED. WILL CTM.
[2019-10-08 04:00] VITALS: BP 142/68
[2019-10-08 05:13] LABS: BASOPHILS 0.1 % (0-2); EOSINOPHILS 0 % (0-7); HEMATOCRIT 35.6 % (42.0-54.0); HEMOGLOBIN 11.8 g/dL (13.5-17.5); IMMATURE GRANULOCYTES 1.1 % (0-5); LYMPHOCYTES 4.4 % (15-50); MCH 30.2 pg (26.0-34.0); MCHC 33.1 g/dL (31.0-37.0); MEAN PLATELET VOLUME 9.1 fL (7.4-10.4); MONOCYTES 3.8 % (2-11); NEUTROPHILS 90.6 % (40-80); RBC 3.91 10x6/uL (4.20-6.10); RDW 14.3 % (11.5-14.5)
[2019-10-08 05:16] LABS: PLATELET COUNT 346 10x3/uL (130-400)
[2019-10-08 05:34] LABS: CALC OSMOLALITY 280 mosm/kg (275-300); CALCIUM 9.1 mg/dL (8.5-10.1); CARBON DIOXIDE 33.4 mmol/L (21.0-32.0); CHLORIDE - SERUM 97 mmol/L (98-107); GLUCOSE 153 mg/dL (74-106); POTASSIUM - SERUM 3.4 mmol/L (3.5-5.1); SODIUM 136 mmol/L (136-145); UREA NITROGEN 29 mg/dL (7-18); eGFR NON AFRICAN AMERICAN 78 mL/min (90-120)
[2019-10-08 09:10] VITALS: BP 157/76
--- NOTE | 2019-10-08 10:19 | NUR ---
SPUTUM SPECIMEN COLLECTED AND SENT TO LAB. WILL MONITOR.
[2019-10-08 12:00] VITALS: BP 120/67
[2019-10-08 16:00] VITALS: BP 126/71
[2019-10-08 20:00] VITALS: BP 133/70
[2019-10-09 01:35] VITALS: BP 144/75
[2019-10-09 05:11] VITALS: BP 171/78
[2019-10-09 05:22] LABS: BASOPHILS 0.1 % (0-2); EOSINOPHILS 0 % (0-7); HEMATOCRIT 35.3 % (42.0-54.0); HEMOGLOBIN 11.6 g/dL (13.5-17.5); IMMATURE GRANULOCYTES 2.1 % (0-5); MCH 30.1 pg (26.0-34.0); MCHC 32.9 g/dL (31.0-37.0); MCV 91.7 fL (80.0-100.0); MONOCYTES 4.2 % (2-11); NEUTROPHILS 90.6 % (40-80); PLATELET COUNT 344 10x3/uL (130-400); RBC 3.85 10x6/uL (4.20-6.10); RDW 14.5 % (11.5-14.5); WBC 14.9 10x3/uL (4.8-10.8)
[2019-10-09 05:41] LABS: CALC OSMOLALITY 276 mosm/kg (275-300); CALCIUM 8.5 mg/dL (8.5-10.1); CARBON DIOXIDE 29.5 mmol/L (21.0-32.0); CHLORIDE - SERUM 98 mmol/L (98-107); CREATININE - SERUM 0.9 mg/dL (0.6-1.3); GLUCOSE 149 mg/dL (74-106); SODIUM 134 mmol/L (136-145); UREA NITROGEN 28 mg/dL (7-18); eGFR NON AFRICAN AMERICAN 89 mL/min (90-120)
[2019-10-09 05:45] LABS: POTASSIUM - SERUM 4.1 mmol/L (3.5-5.1)
[2019-10-09 09:14] VITALS: BP 155/78
[2019-10-09 12:00] VITALS: BP 168/71
--- NOTE | 2019-10-09 17:37 | NUR ---
I have reviewed this patient and I concur with the Shift Assessment completed by the Licensed Practical Nurse today this shift.
--- NOTE | 2019-10-09 19:04 | NUR ---
AWAKE AND DENIES NEEDS AT THIS TIME BED IS LOW AND LOCKED CALL LIGHT WITH PT
[2019-10-09 20:00] VITALS: BP 148/75
[2019-10-10] VITALS: BP 136/72
[2019-10-10 04:48] LABS: BASOPHILS 0.1 % (0-2); EOSINOPHILS 0 % (0-7); HEMATOCRIT 35.3 % (42.0-54.0); HEMOGLOBIN 11.7 g/dL (13.5-17.5); IMMATURE GRANULOCYTES 3.7 % (0-5); LYMPHOCYTES 4.2 % (15-50); MCH 29.9 pg (26.0-34.0); MCHC 33.1 g/dL (31.0-37.0); MCV 90.3 fL (80.0-100.0); MEAN PLATELET VOLUME 8.8 fL (7.4-10.4); MONOCYTES 5.6 % (2-11); NEUTROPHILS 86.4 % (40-80); PLATELET COUNT 359 10x3/uL (130-400); RBC 3.91 10x6/uL (4.20-6.10); RDW 14.4 % (11.5-14.5); WBC 15.7 10x3/uL (4.8-10.8)
[2019-10-10 05:04] VITALS: BP 148/77
[2019-10-10 05:32] LABS: CALC OSMOLALITY 268 mosm/kg (275-300); CALCIUM 8.4 mg/dL (8.5-10.1); CARBON DIOXIDE 28.4 mmol/L (21.0-32.0); CHLORIDE - SERUM 99 mmol/L (98-107); CREATININE - SERUM 0.8 mg/dL (0.6-1.3); GLUCOSE 121 mg/dL (74-106); MAGNESIUM - SERUM 2.1 mg/dL (1.8-2.4); POTASSIUM - SERUM 4.6 mmol/L (3.5-5.1); SODIUM 132 mmol/L (136-145); UREA NITROGEN 22 mg/dL (7-18); eGFR NON AFRICAN AMERICAN > 90 mL/min (90-120)
--- NOTE | 2019-10-10 07:48 | NUR ---
RECIEVED REPORT. PATIENT IS ALERT AND AWAKE AND JUST FINISHED HIS BREATHING TREATMENT. DENIES ANY OTHER NEEDS AT THSI TIME.
[2019-10-10 08:34] VITALS: BP 159/76
--- NOTE | 2019-10-10 10:56 | NUR ---
IV IN LEFT FOREARM WAS INFILTRATED AND PAINFUL THIS MORNING. I IMMEDIATELY STOPPED THE IV FROM INFUSING. IT STILL FLUSHED, BUT PATIENT REPORTED IT WAS PAINFUL. REMOVED IV WITH CATHETER INTACT.
--- NOTE | 2019-10-10 10:57 | NUR ---
CALLED PHARM ABOUT FLONASE.
--- NOTE | 2019-10-10 10:58 | NUR ---
22G PIV STARTED IN LEFT WRIST. PATIENT TOLERATED.
[2019-10-10 12:00] VITALS: BP 145/83
--- NOTE | 2019-10-10 13:40 | NUR ---
Nutrition Follow-up: Eating well. Denies N/V/C/D, chewing/swallowing difficulties. Diet: Regular PO intake: 75-100% Wt: 109# (10/08); 102# (10/05) Last BM: 10/09 Labs noted: Na 132, Glu 121, Ca 8.4 Meds noted: Solumedrol, Protonix -Encourage PO intake and honor food preferences. -Monitor wt. -RD following.
[2019-10-10 15:45] VITALS: BP 144/74
--- NOTE | 2019-10-10 19:45 | NUR ---
EVENING ROUNDS COMPLETED. PT AAOX4, AFVSS,PT RECIEVING RT TX. URINAL AT BEDSIDE. IV ATBX INFUSING AT THIS TIME. PT DENIES ANY FURTHER NEEDS AT THIS TIME. NEVAEH CPOC. CL WITHIN REACH, BED IN LOW, SR UP X2.
--- NOTE | 2019-10-10 20:34 | NUR ---
OT NOTE: PT COMPLETED ADL MOB WITH SBA/SPV. PT COMPLETED SIT TO STAND WITH SPV. PT EXHIBITED DECREASED AX TOLERANCE WITH INCREASED LEVEL OF ACTIVITY. PT STATED WHEN OUTSIDE OF HOME USES A CANE FOR INCREASED SAFETY. PT COMPLETED UE AROM AXS WITH FUNCTIONAL TASKS WITH NO C/O PAIN. PT L HAND IS MILDLY SWOLLEN SECONDARY TO IV. NURSING AWARE. [phone] THANK YOU,FRANKLYN RIVERA
[2019-10-10 20:48] VITALS: BP 139/74
[2019-10-11 00:12] VITALS: BP 142/76
[2019-10-11 03:45] VITALS: BP 134/82
[2019-10-11 05:12] LABS: CALC OSMOLALITY 265 mosm/kg (275-300); CALCIUM 8.4 mg/dL (8.5-10.1); CARBON DIOXIDE 29.8 mmol/L (21.0-32.0); CHLORIDE - SERUM 98 mmol/L (98-107); CREATININE - SERUM 0.8 mg/dL (0.6-1.3); GLUCOSE 96 mg/dL (74-106); POTASSIUM - SERUM 5.2 mmol/L (3.5-5.1); SODIUM 131 mmol/L (136-145); UREA NITROGEN 22 mg/dL (7-18); eGFR NON AFRICAN AMERICAN > 90 mL/min (90-120)
[2019-10-11 05:13] LABS: HEMATOCRIT 36.7 % (42.0-54.0); HEMOGLOBIN 12.1 g/dL (13.5-17.5); MCH 29.5 pg (26.0-34.0); MCV 89.5 fL (80.0-100.0); MEAN PLATELET VOLUME 8.9 fL (7.4-10.4); PLATELET COUNT 373 10x3/uL (130-400); RDW 14.4 % (11.5-14.5); WBC 16.4 10x3/uL (4.8-10.8)
[2019-10-11 09:06] LABS: LYMPHOCYTES 11 % (15-50); MONOCYTES 9 % (2-11); NEUTROPHILS 77 % (40-80)
[2019-10-11 09:07] LABS: ANISOCYTOSIS OCC; PLATELET ESTIMATE NORMAL
[2019-10-11 09:31] VITALS: BP 145/83
--- NOTE | 2019-10-11 10:57 | NUR ---
I have reviewed this patient and I concur with the Shift Assessment completed by the Licensed Practical Nurse today this shift.
[2019-10-11 13:43] VITALS: BP 149/76
[2019-10-11 17:04] VITALS: BP 126/67
--- NOTE | 2019-10-11 20:20 | NUR ---
PT RESTING COMFORTABLY. AAOX4, AFVSS, NO S/S OF DISTRESS. RR EVEN AND UNLABORED. PT DENIES PT DENIES ANY FURTHER NEEDS AT THIS TIME. WILL CPOC. CL WITHIN REACH.
[2019-10-11 20:39] VITALS: BP 122/69
[2019-10-12] VITALS: BP 117/74
[2019-10-12 05:13] VITALS: BP 133/70
[2019-10-12 06:22] LABS: CALC OSMOLALITY 266 mosm/kg (275-300); CALCIUM 8.2 mg/dL (8.5-10.1); CARBON DIOXIDE 27.8 mmol/L (21.0-32.0); CHLORIDE - SERUM 97 mmol/L (98-107); CREATININE - SERUM 0.7 mg/dL (0.6-1.3); GLUCOSE 79 mg/dL (74-106); MAGNESIUM - SERUM 2.2 mg/dL (1.8-2.4); POTASSIUM - SERUM 5.2 mmol/L (3.5-5.1); SODIUM 132 mmol/L (136-145); UREA NITROGEN 22 mg/dL (7-18); eGFR NON AFRICAN AMERICAN > 90 mL/min (90-120)
[2019-10-12 07:32] LABS: BASOPHILS 0.3 % (0-2); EOSINOPHILS 0.8 % (0-7); HEMATOCRIT 38.9 % (42.0-54.0); HEMOGLOBIN 12.8 g/dL (13.5-17.5); IMMATURE GRANULOCYTES 9.4 % (0-5); LYMPHOCYTES 8.5 % (15-50); MCH 29.7 pg (26.0-34.0); MCHC 32.9 g/dL (31.0-37.0); MCV 90.3 fL (80.0-100.0); MONOCYTES 8.1 % (2-11); NEUTROPHILS 72.9 % (40-80); PLATELET COUNT 389 10x3/uL (130-400); RBC 4.31 10x6/uL (4.20-6.10); RDW 14.5 % (11.5-14.5); WBC 14.6 10x3/uL (4.8-10.8)
[2019-10-12 09:00] VITALS: BP 115/73
[2019-10-12 12:00] VITALS: BP 106/61
--- NOTE | 2019-10-12 17:20 | NUR ---
OT NOTE: PT DOING VERY WELL. AMB TO BATHROOM AND SINK WITH CGA AND USE OF 02; ADLS WITH MIN/CGA; ABLE TO AMB GREATER THAN 200FT WITH MIN/CGA AND USE OF 02. ONLY MINIMAL FATIGUE UPON RETURN BACK TO ROOM. INEP WITH BED MOB MARCELL RICHARDSON, OTR/L [phone]
[2019-10-12 17:25] VITALS: BP 115/69
--- NOTE | 2019-10-12 18:57 | NUR ---
OT NOTE: (DOS 10/11/2019) PT COMPLETED BED MOB WITH SBA. PT COMPLETED SIT TO STAND WITH SBA/CGA. PT COMPLETED ADL MOB WITH CGA. PT COMPLETED BUE AROM EX AT EOB FOR INCREASED AX TOLERANCE. PT COMPLETED HAND WASH AT SINK LEVEL WITH CGA. [phone] THANK YOU,FRANKLYN RIVERA
[2019-10-12 20:00] VITALS: BP 111/69
--- NOTE | 2019-10-12 21:11 | NUR ---
OT NOTE: PT COMPLETED ADL MOB WITHIN ROOM WITH CGA. PT COMPLETED SIT TO STAND WITH SBA. PT COMPLETED BED MOB WITH SPV. PT COMPLETED HYGIENE TASKS AT SINK LEVEL WITH CGA. PT DOING WELL. [phone] THANK YOU,FRANKLYN RIVERA
[2019-10-13] VITALS: BP 122/72
[2019-10-13 04:00] VITALS: BP 120/68
--- NOTE | 2019-10-13 04:01 | NUR ---
PT C/O STOMACH "BURNING" PT DENIES NAUSEA. HE STATES HE FEELS LIKE HE HAS ACID REFLUX. NOTIFIED COMPA SHIPMAN. HE ORDERED GI COCTAIL, X1. MED ADMINISTERED. WILL CTM. CL WITHIN REACH.
[2019-10-13 05:29] LABS: HEMATOCRIT 35.5 % (42.0-54.0); HEMOGLOBIN 11.8 g/dL (13.5-17.5); MCH 29.7 pg (26.0-34.0); MCHC 33.2 g/dL (31.0-37.0); MCV 89.4 fL (80.0-100.0); MEAN PLATELET VOLUME 8.4 fL (7.4-10.4); PLATELET COUNT 389 10x3/uL (130-400); RBC 3.97 10x6/uL (4.20-6.10); RDW 14.5 % (11.5-14.5); WBC 11.9 10x3/uL (4.8-10.8)
[2019-10-13 05:47] LABS: CALC OSMOLALITY 265 mosm/kg (275-300); CALCIUM 8.6 mg/dL (8.5-10.1); CARBON DIOXIDE 29.8 mmol/L (21.0-32.0); CHLORIDE - SERUM 98 mmol/L (98-107); CREATININE - SERUM 0.8 mg/dL (0.6-1.3); GLUCOSE 83 mg/dL (74-106); MAGNESIUM - SERUM 2.4 mg/dL (1.8-2.4); POTASSIUM - SERUM 4.6 mmol/L (3.5-5.1); SODIUM 131 mmol/L (136-145); UREA NITROGEN 25 mg/dL (7-18); eGFR NON AFRICAN AMERICAN > 90 mL/min (90-120)
[2019-10-13 05:57] LABS: LYMPHOCYTES 16 % (15-50); MONOCYTES 1 % (2-11); NEUTROPHILS 83 % (40-80); PLATELET ESTIMATE NORMAL
--- NOTE | 2019-10-13 07:08 | NUR ---
REPORT RECEIVED. NEVAEH CONTINUE WITH POC. PT CURRENTLY LYING HIGH FOWLERS. CALL LIGHT W/I REACH. PT ASLEEP WITH EYES OPEN AT THIS TIME. NO S/S OF DISTRESS NOTED. RR EVEN AND UNLABORED ON 2L 02. NS INFUSING @25ML/HR VIA R.FOR PIV. WILL CTM.
[2019-10-13 08:57] VITALS: BP 116/64
[2019-10-13] MEDS ORDERED: SINGULAIR10 MG PO (10:57)
[2019-10-13] MEDS ORDERED: LEVAQUIN750 MG PO (10:57)
[2019-10-13] MEDS ORDERED: PROTONIX40 MG PO (11:01)
[2019-10-13] MEDS ORDERED: PREDNISONE10 MG PO (11:01)
[2019-10-13 12:02] VITALS: BP 127/67
--- NOTE | 2019-10-13 13:56 | NUR ---
PT DISCHARGED HOME VIA WHEELCHAIR WITH FAMILY. PIV REMOVED WITH CATHETER TIP FULLY INTACT. PT SIGNED DISCHARGE INSTRUCTIONS AND REMOVED ALL VALUABLES FROM THE ROOM.
--- NOTE | 2019-10-13 17:03 | NUR ---
OT NOTE: PT COMPLETED SUPINE TO SIT WITH SPV. PT COMPLETED FACE WASH WITH SET UP. PT COMPLETED UE AROM EXS AT EOB WITH SPV. [phone] THANK YOU,FRANKLYN RIVERA
--- NOTE | 2019-10-13 18:35 | MORECARE ---
CASE MANAGEMENT DISCHARGE SUMMARY PATIENT: THANG MCDANIEL ASHLEY UNIT: [id number] ADM DATE: 10/06/19 AGE: 69 : 49 SEX: M ROOM/BED: D.2105 AUTHOR: ALETHA,DOC PHYSICIAN: REFERRING PHYSICIAN: BROOKS NYE MD DATE OF SERVICE: 10/13/19 Discharge Plan Patient Name: THANG MCDANIEL Facility: [facility]:[place] : 1950 Planned Disposition: Home Anticipated Discharge Date: 10/13/19 Discharge Date: 10/13/2019 Expected LOS: 7 Initial Reviewer: [email or web address] Initial Review Date: 10/13/2019 Generated: 10/13/19 7:35 pm Comments DCP- Discharge Planning Updated by [email or web address]: Faheem Lawrence on 10/13/19 5:[address] Patient Name: THANG MCDANIEL Admission Status: ER Accout number: [id number] Admission Date: 10-06-2019 : 1950 Admission Diagnosis: Attending: REJI NYE Current LOS: 7 Anticipated DC Date: 10-13-2019 Planned Disposition: Home Primary Insurance: [employer] CHOICE PPO MCR ADVANT Discharge Planning Comments: CM MET WITH PT IN ROOM TO DISCUSS DISCHARGE PLANNING AND NEEDS. PT REPORTS LIVING AT HOME INDEPENDENTLY AND ALONE, FAMILY LIVES NEXT DOOR. PT HASNEBULIZER AND HOME / PORTABLE OXYGEN FROM [facility]. PT HAS NO OUTSIDE SERVICES ASSISTING IN THE HOME. CM DISCUSSED AVAILABILITY OF HOME HEALTH, REHAB SERVICES AND MEDICAL EQUIPMENT. PT DENIES DISCHARGE NEEDS, REPORTS HIS BROTHER WILL PICK HIM UP FOR DISCHARGE HOME. IMPORTANT MESSAGE FROM MEDICARE PROVIDED AND EXPLAINED. Intelligence Director: Faheem Lawrence DCPIA - Discharge Planning Initial Assessment Updated by [email or web address]: Faheem Lawrence on 10/13/19 6:29 pm * Is the patient Alert and Oriented? Yes * How many steps to enter\exit or inside your home? * PCP DR. SO * Pharmacy [facility] [address] * Preadmission Environment Home Alone * ADLs Independent * Equipment Nebulizer Oxygen * Other Equipment HOME AND PORTABLE OXYGEN, [facility] * List name and contact numbers for known caregivers / representatives who currently or will assist patient after discharge: BROTHER [place]UM[place], * Verbal permission to speak to the caregivers and representatives has been obtained from the patient. N/A * Community resources currently utilized None * Please name any agencies selected above. NONE * Additional services required to return to the preadmission environment? No * Can the patient safely return to the preadmission environment? Yes * Has this patient been hospitalized within the prior 30 days at any hospital? No Coverage Notice Reviewer: [email or web address] Kathy Lawrence Notice Issued Date-Time: 10/13/2019 12:45 Notice Type: IM Discharge Notice Notice Delivered To: Patient Relationship to Patient: Pipe Cleaning Machine Operator Name: Delivery Method: HAND - Hand Delivered Pratima Days: Prior Verbal Notification: Recipient Understood Notice: Yes Recipient Signature: Yes Med Rec Note Co-signed by Attending: Coverage Notice Comment: Patient Name: THANG MCDANIEL Page 98495 at 1835 All edits/amendments must be made on the electronic document DICTATION DATE: 10/13/191834 FISHER SCALLOP: ISIDRO 10/13/191834 RPT#: [id number] DC DATE:10/13/19 STATUS: DIS IN [facility] [address] [place] [address] END OF REPORT
== END 2019-10-13 13:57 | disposition home or self-care (01) | DRG 177 ==
LOC: D.ER 09:18 → D.ICU 10:43 → D.M2 10-07 14:41
PROVIDERS: Family Medicine; Internal Medicine Pulmonary Disease; ADMIT Emergency Medicine; ATTEND Emergency Medicine
DX: J15.6 Pneumonia due to other Gram-negative bacteria (principal); J96.22 Acute and chronic respiratory failure with hypercapnia; J96.21 Acute and chronic respiratory failure with hypoxia; I50.31 Acute diastolic (congestive) heart failure; J44.1 Chronic obstructive pulmonary disease with (acute) exacerbation; J44.0 Chronic obstructive pulmonary disease with (acute) lower respiratory infection; E87.3 Alkalosis; E87.1 Hypo-osmolality and hyponatremia; J90 Pleural effusion, not elsewhere classified; N17.9 Acute kidney failure, unspecified; E78.5 Hyperlipidemia, unspecified; I25.10 Atherosclerotic heart disease of native coronary artery without angina pectoris; K21.9 Gastro-esophageal reflux disease without esophagitis; D50.9 Iron deficiency anemia, unspecified; E87.6 Hypokalemia; C61 Malignant neoplasm of prostate; J20.9 Acute bronchitis, unspecified; E86.0 Dehydration; I11.0 Hypertensive heart disease with heart failure

== ENCOUNTER → 2020-03-12 08:06 | Outpatient (CLI) | payer MEDICARE ==
[2019-10-07 09:36] VITALS: BMI 15.9
[~2020-03-12 08:06] MED LIST changes: +LEVAQUIN750 MG PO; +PROTONIX40 MG PO; +SINGULAIR10 MG PO
== END | disposition home or self-care (01) ==
LOC: D.LAB 03-11 08:10
PROVIDERS: ATTEND Internal Medicine Pulmonary Disease
DX: Z11.59 Encounter for screening for other viral diseases (principal)

== ENCOUNTER → 2020-03-13 10:50 | Outpatient (CLI) | payer MEDICARE ==
[2019-10-07 09:36] VITALS: BMI 15.9
[2020-03-13 11:23] LABS: BASOPHILS 0.1 % (0-2); EOSINOPHILS 2.5 % (0-7); HEMATOCRIT 36.7 % (42.0-54.0); HEMOGLOBIN 11.8 g/dL (13.5-17.5); IMMATURE GRANULOCYTES 0.3 % (0-5); LYMPHOCYTES 11.1 % (15-50); MCH 29.4 pg (26.0-34.0); MCHC 32.2 g/dL (31.0-37.0); MCV 91.3 fL (80.0-100.0); MEAN PLATELET VOLUME 8.2 fL (7.4-10.4); MONOCYTES 5.7 % (2-11); NEUTROPHILS 80.3 % (40-80); RBC 4.02 10x6/uL (4.20-6.10); RDW 13.5 % (11.5-14.5); WBC 9.4 10x3/uL (4.8-10.8)
[2020-03-13 11:24] LABS: PLATELET COUNT 306 10x3/uL (130-400)
[2020-03-15 21:07] LABS: IMMUNOGLOBULIN E 482 IU/mL (6-495)
== END | disposition home or self-care (01) ==
LOC: D.RT 10:50
PROVIDERS: ATTEND Internal Medicine Pulmonary Disease
DX: J44.9 Chronic obstructive pulmonary disease, unspecified (principal); Z11.59 Encounter for screening for other viral diseases

== ENCOUNTER → 2020-03-22 08:09 | Outpatient (CLI) | payer MEDICARE ==
[2019-10-07 09:36] VITALS: BMI 15.9
[2020-03-22 08:55] LABS: CREATININE - SERUM 1.1 mg/dL (0.6-1.3)
== END | disposition home or self-care (01) ==
LOC: D.LAB 08:09
PROVIDERS: ATTEND Internal Medicine Pulmonary Disease
DX: R91.1 Solitary pulmonary nodule (principal)

== ENCOUNTER → 2020-03-26 08:01 | Outpatient (CLI) | payer MEDICARE ==
[2019-10-07 09:36] VITALS: BMI 15.9
== END | disposition home or self-care (01) ==
LOC: D.LAB 08:01
PROVIDERS: ATTEND Internal Medicine Pulmonary Disease
DX: Z11.59 Encounter for screening for other viral diseases (principal)

== ENCOUNTER → 2020-03-28 11:22 | Outpatient (CLI) | payer MEDICARE ==
[2019-10-07 09:36] VITALS: BMI 15.9
== END | disposition home or self-care (01) ==
LOC: D.RT 03-13 11:00
PROVIDERS: ATTEND Internal Medicine Pulmonary Disease
DX: J44.9 Chronic obstructive pulmonary disease, unspecified (principal)

== ENCOUNTER 2020-04-17 13:54 | Inpatient (IN) | payer MEDICARE ==
[~2020-04-17] VITALS: Ht 167.6 cm; Wt 63.6 kg
--- NOTE | ~2020-04-17 | HEMODYNAMI ---
PATIENT:THANG MCDANIEL MEDICAL RECORD: [id number] : [birth year] LOCATION:[facility] D.2301 ADMISSION DATE: 04/17/20 Generatedon:04/20/202014:44 Patient name: THANG MCDANIEL Patient #: [id number] : 1950 Date of study: 04/20/2020 Page: Of Hemodynamic Procedure Report Patient Data Patient Demographics Procedure consent was obtained First Name: THANG Gender: Male Last Name: VIOLETA : 1950 [facility] Initial: ASHLEY Age: 69 year(s) Patient #: [id number] Race: Unknown SSN: [id number] Additional ID: [id number] Contact details Address: [address] [place] [address] State: [place] City: [place] Zip code: [address] Admission Admission Data Admission Date: 04/17/2020 Admission Time: 17:18 Room #: D2301 Procedure Procedure Types Cath Procedure Peripheral Cath Diagnostic Procedure PICC PICC Line Placement Procedure Description Procedure Date Procedure Date: 04/20/2020 Procedure Start Time: 14:37 Procedure Staff Name Function Mookie Arrieta MD Performing Physician DENNYS COOPER RT Monitor Carlos Burris RT Scrub Roland FERRER RN Nurse Procedure Data Cath Procedure Fluoroscopy Diagnostic fluoroscopy Total fluoroscopy Time: 1 time: 1 min min Diagnostic fluoroscopy Total fluoroscopy dose: 6 dose: 6 mGy mGy Hemodynamics Rest Pre Cath Intra NCS Post Cath Procedure Log Time Note 14:19:35 Use device set IR Diagnostic 14:19:36 Bag Decanter (2002S) opened to sterile field. 14:19:37 Sterile Angiographic Pack opened to sterile field. 14:19:37 Tegaderm 4 x 4 (1626W) opened to sterile field. 14:19:44 PowerPICC 5Fr double lumen catheter opened to sterile field. 14:28:05 Roland FERRER RN sent for patient. Start room use. 14:28:07 Time tracking: Regular hours (M-F 7:00 - 5:00) 14:28:16 Patient received from ICU to IR Alert and oriented. Tansferred to table in Supine position. 14:28:29 Signed procedure consent form obtained from patient. 14:28:30 Pre-procedure instructions explained to patient. 14:28:41 Right Arm area was prepped with chlora-prep and draped in sterile fashion 14:35:31 --------ALL STOP TIME OUT------ 14:35:31 Final Timeout: patient, procedure, and site verified with staff and physician. All members of the team are in agreement. 14:35:35 Sharps counted by scrub and verified by R.N. 14:36:15 Procedure started. 14:36:15 Full Disclosure recording started 14:37:11 Local anesthetic to right arm with Lidocaine 1% by Mookie Arrieta MD.INITIAL ACCESS ONLY 14:37:14 Venous access obtained using ultrasound guidance. 14:40:11 PICC line was trimmed to 49cm and advanced to the superior vena cava.Position verified under fluoroscopy. 14:42:24 Procedure ended.(Physican Out) 14:43:14 Fluoroscopy time 01.00 minutes. 14:43:16 Fluoroscopy dose: 6 mGy 14:43:16 Flurop Dose total: 6 14:43:19 Insertion/operative site no bleeding no hematoma. 14:43:27 Post-op/insertion site Right Axiliary dressed using a 4 x 4 and Tegaderm. 14:43:32 Procedure and supply charges have been captured, reviewed, submitted and are correct. 14:44:20 Operative report dictated upon procedure completion. 14:44:22 See physician's report for complete and final results. Device Usage Item Name Manufacture Quantity Catalog Hospital Part Current Minimal Lot# / Number Charge Number Stock Stock Serial# Code Bag Decanter Microtek 1 [id number] () Medical Inc. Sterile Cardinal 1 [id number] 5 Angiographic Health Pack Tegaderm 4 x 3M 1 [id number] 5 4 (1626W) PowerPICC Bard 1 [id number] 5 5Fr double lumen catheter Signature Audit [place] Stage Time Signature Unsigned Intra-Procedure 04/20/2020 DENNYS COOPER RT 2:44:46 PM (R) [facility] [address] [place] [address]
--- NOTE | 2020-04-17 14:35 | NUR ---
URINE SAMPLE OBTAINED AND SENT TO LAB
--- NOTE | 2020-04-17 14:35 | NUR ---
LAB AT BEDSIDE
[2020-04-17 15:04] LABS: HEMOGLOBIN 14.2 g/dL (13.5-17.5); MCH 30.1 pg (26.0-34.0); MCV 91.1 fL (80.0-100.0); MEAN PLATELET VOLUME 9.5 fL (7.4-10.4); PLATELET COUNT 313 10x3/uL (130-400); RBC 4.72 10x6/uL (4.20-6.10); RDW 14.2 % (11.5-14.5)
[2020-04-17 15:10] LABS: ANION GAP 14.1 mmol/L (8-16); CALCIUM 9.8 mg/dL (8.5-10.1); CARBON DIOXIDE 23.9 mmol/L (21.0-32.0); CREATININE - SERUM 1.5 mg/dL (0.6-1.3)
[2020-04-17 15:15] LABS: BILIRUBIN NEGATIVE (NEGATIVE); KETONE NEGATIVE (NEGATIVE); NITRITE NEGATIVE (NEGATIVE); UROBILINOGEN NORMAL mg/dL (< 2); WHITE CELLS - URINE 0-5 HPF (0-1)
[2020-04-17 15:15] LABS: ALBUMIN 2.9 g/dL (3.4-5.0); BILIRUBIN - TOTAL 0.67 mg/dL (0.2-1.3); PROTEIN - SERUM 7.9 g/dL (6.4-8.2)
[2020-04-17 15:16] LABS: BACTERIA MODERATE /HPF (NONE SEEN)
--- NOTE | 2020-04-17 15:22 | NUR ---
PROVIDER AT BEDSIDE
[2020-04-17 16:18] LABS: EOSINOPHILS 3 % (0-7); LYMPHOCYTES 1 % (15-50); MONOCYTES 2 % (2-11); NEUTROPHILS 84 % (40-80)
[2020-04-17 16:19] LABS: PLATELET ESTIMATE NORMAL
[2020-04-17 17:36] VITALS: BP 134/70
--- NOTE | 2020-04-17 18:04 | NUR ---
REPORT CALLED TO JEAN[facility]CLAUDE [facility]
--- NOTE | 2020-04-17 20:39 | NUR ---
PT ARRIVEDC TO FLOOR [facility]IA [employer]. PT A/O X4 SOB RR 20. O2-2.5L 92%. T-100.0 PRN TYLENOL GIVEN. NO ACUTE S/S OF DISTRESS AT THIS TIME. BED ALRM ON BED LOW CALL LIGHT WITHIN REACH. WILL CONTINUE TO MONITOR.
--- NOTE | 2020-04-18 04:21 | NUR ---
D/C RIGHT FOREARM PIV, TIP INTACT. VEIN BLOWN. RESITED IV IN LEFT FOREARM 20 GUAGE.
[2020-04-18 07:08] LABS: APTT 30.2 SECONDS (22.8-39.4)
[2020-04-18 07:12] LABS: INR 1.19 (0.85-1.17)
[2020-04-18 07:16] LABS: BASOPHILS 0 % (0-2); EOSINOPHILS 0 % (0-7); HEMATOCRIT 40.4 % (42.0-54.0); IMMATURE GRANULOCYTES 0.8 % (0-5); LYMPHOCYTES 1.4 % (15-50); MCH 29.1 pg (26.0-34.0); MCHC 32.2 g/dL (31.0-37.0); MCV 90.6 fL (80.0-100.0); MEAN PLATELET VOLUME 9.5 fL (7.4-10.4); MONOCYTES 2.7 % (2-11); NEUTROPHILS 95.1 % (40-80); PLATELET COUNT 298 10x3/uL (130-400); RBC 4.46 10x6/uL (4.20-6.10); RDW 14.4 % (11.5-14.5)
[2020-04-18 07:17] LABS: WBC 16.2 10x3/uL (4.8-10.8)
[2020-04-18 07:20] LABS: ALBUMIN 2.1 g/dL (3.4-5.0); ANION GAP 13.2 mmol/L (8-16); BILIRUBIN - TOTAL 0.49 mg/dL (0.2-1.3); CALCIUM 9.2 mg/dL (8.5-10.1); CARBON DIOXIDE 25.1 mmol/L (21.0-32.0); CREATININE - SERUM 1.1 mg/dL (0.6-1.3); MAGNESIUM - SERUM 2.3 mg/dL (1.8-2.4); POTASSIUM - SERUM 4.3 mmol/L (3.5-5.1); PROTEIN - SERUM 6.5 g/dL (6.4-8.2)
[2020-04-18 09:00] VITALS: BP 168/89
--- NOTE | 2020-04-18 09:34 | NUR ---
SOB AND O2 SAT WAS 84% ON 2.5L NC. TURNED UP TO 5L AND NO CHANGE. CHANGED TO HFNC 15L AND PATIENT O2 SATURATION UP TO 91% STILL SOB. CALLED AND TALKED WITH RESPIRATORY. WILL CONTINUE MONITORING.
--- NOTE | 2020-04-18 10:26 | NUR ---
PAGED DR. MCKEON FOR ABG RESULTS AND BREATHING EFFORT. AWAITING CALL.
--- NOTE | 2020-04-18 10:41 | NUR ---
TALKED WITH DR. MCKEON AND HE WANTS TO PUT PATIENT ON NONREBREATHER MASK AND TRANSFER HIM TO ICU.
[2020-04-18 21:00] VITALS: BP 126/98
[2020-04-18 22:00] VITALS: BP 116/90
[2020-04-18 23:00] VITALS: BP 135/109
[2020-04-19] VITALS (23 sets, daily range): BP systolic 88–169; BP diastolic 55–118; BMI 17.4
[2020-04-19 05:13] LABS: BASOPHILS 0.1 % (0-2); EOSINOPHILS 0 % (0-7); HEMATOCRIT 42.7 % (42.0-54.0); HEMOGLOBIN 13.9 g/dL (13.5-17.5); IMMATURE GRANULOCYTES 2.8 % (0-5); MCH 29.6 pg (26.0-34.0); MCHC 32.6 g/dL (31.0-37.0); MEAN PLATELET VOLUME 9.9 fL (7.4-10.4); MONOCYTES 1.8 % (2-11); NEUTROPHILS 94.3 % (40-80); PLATELET COUNT 280 10x3/uL (130-400); RBC 4.69 10x6/uL (4.20-6.10); RDW 14.9 % (11.5-14.5); WBC 17.2 10x3/uL (4.8-10.8)
[2020-04-19 05:21] LABS: ANION GAP 14.8 mmol/L (8-16); CARBON DIOXIDE 24.6 mmol/L (21.0-32.0); MAGNESIUM - SERUM 2.3 mg/dL (1.8-2.4); PHOSPHOROUS 4.2 mg/dL (2.5-4.9); POTASSIUM - SERUM 4.4 mmol/L (3.5-5.1)
[2020-04-19 05:31] LABS: CREATININE - SERUM 1.6 mg/dL (0.6-1.3)
[2020-04-20] VITALS (23 sets, daily range): BP systolic 80–124; BP diastolic 40–76
[2020-04-20 03:32] LABS: HEMATOCRIT 35.6 % (42.0-54.0); HEMOGLOBIN 11.6 g/dL (13.5-17.5); MCH 29.7 pg (26.0-34.0); MCHC 32.6 g/dL (31.0-37.0); MCV 91.3 fL (80.0-100.0); MEAN PLATELET VOLUME 10.2 fL (7.4-10.4); PLATELET COUNT 188 10x3/uL (130-400); RDW 15.4 % (11.5-14.5); WBC 28.6 10x3/uL (4.8-10.8)
[2020-04-20 03:38] LABS: ANION GAP 13.8 mmol/L (8-16); CALCIUM 8.1 mg/dL (8.5-10.1); CARBON DIOXIDE 25.1 mmol/L (21.0-32.0); MAGNESIUM - SERUM 2.4 mg/dL (1.8-2.4); PHOSPHOROUS 4.8 mg/dL (2.5-4.9); POTASSIUM - SERUM 3.9 mmol/L (3.5-5.1)
[2020-04-20 03:40] LABS: CREATININE - SERUM 2.7 mg/dL (0.6-1.3)
[2020-04-20 03:55] LABS: LYMPHOCYTES 1 % (15-50); MONOCYTES 3 % (2-11); NEUTROPHILS 61 % (40-80)
[2020-04-20 03:56] LABS: PLATELET ESTIMATE DECREASED
--- NOTE | 2020-04-20 10:29 | NUR ---
Nutrition follow-up: Pt now in ICU 2/2 breathing issues Diet: AHA with poor po intake Will provide food choices with selective menus if medically feasible. RDN following.
--- NOTE | 2020-04-20 11:00 | NUR ---
PS 10
--- NOTE | 2020-04-20 13:39 | NUR ---
0700-RECIVED PER FLOW SHEET- 0845-REMOVED BIPAP-AND PLACED ON 10 L OXIMYZER-ASSISTED WITH BREAKFEST TRAY-PT NOT ABLE TO SWALLOW WITHOUT DIFFICULTY-CLEARING COUGH FOLLOWING EACH ATTEMPT-FROM H2O TO THICKER LIQUID-REMAINDER STOPPED--LEFT OFF BIPAP-95% ON 10L OXIMYZER-DEPENDS PAD CHANGED-FOR NEW ONE 0930-RETURNED TO BIPAP -SAT 92%1030-SPEECH THERAPY MADE AWARE OF CONSULT 1130-DR MCKEON IN UNIT-ROUND MADE-ORDERS RECIEVED AND NOTED 1338-SISTER IN LAW CALLED AND CNEGEVAK-[phone]
--- NOTE | 2020-04-20 14:20 | NUR ---
PT TO SPECIALS AND TRANSPORTED ON BIPAP-
--- NOTE | 2020-04-20 15:17 | NUR ---
PT ON 15L HFNC
--- NOTE | 2020-04-20 15:24 | NUR ---
PT RETURNED FROM [facility] [place] PICC -24CM-BICARB INFUSION STARTED-AT 100ML/H-SPEECH THERAPIST AT BEDSIDE-PT FAILED SWALLOW EVAL-REMAINS ON OXIMYZER AT 10L -TOLERATING WELL-
--- NOTE | 2020-04-20 21:16 | NUR ---
PT IS NUSRAT KEARNSO. MEDS HELD AT THIS TIME UNTIL OK'D BY PHYSICIAN.
[2020-04-21] VITALS (57 sets, daily range): BP systolic 67–138; BP diastolic 42–87; BMI 22.3
[2020-04-21 04:25] LABS: BASOPHILS 0.1 % (0-2); EOSINOPHILS 0 % (0-7); HEMATOCRIT 34.8 % (42.0-54.0); HEMOGLOBIN 11.7 g/dL (13.5-17.5); IMMATURE GRANULOCYTES 2.9 % (0-5); LYMPHOCYTES 0.9 % (15-50); MCH 30.2 pg (26.0-34.0); MCHC 33.6 g/dL (31.0-37.0); MCV 89.7 fL (80.0-100.0); MONOCYTES 0.3 % (2-11); NEUTROPHILS 95.8 % (40-80); PLATELET COUNT 123 10x3/uL (130-400); RBC 3.88 10x6/uL (4.20-6.10); RDW 15.2 % (11.5-14.5); WBC 30.4 10x3/uL (4.8-10.8)
[2020-04-21 04:31] LABS: CREATININE - SERUM 2.4 mg/dL (0.6-1.3); MAGNESIUM - SERUM 2.5 mg/dL (1.8-2.4)
[2020-04-21 04:39] LABS: ANION GAP 9.1 mmol/L (8-16); CARBON DIOXIDE 34.1 mmol/L (21.0-32.0); PHOSPHOROUS 3.2 mg/dL (2.5-4.9); POTASSIUM - SERUM 3.2 mmol/L (3.5-5.1)
--- NOTE | 2020-04-21 06:22 | NUR ---
BED BATH AND LINEN CHANGE COMPLETED. TOLLMARCI WELL. ST ON THE MONITOR.
[2020-04-21 10:18] LABS: BILIRUBIN NEGATIVE (NEGATIVE); KETONE SMALL mg/dL (NEGATIVE); NITRITE NEGATIVE (NEGATIVE); UROBILINOGEN NORMAL mg/dL (< 2)
[2020-04-21 10:20] LABS: BACTERIA MODERATE HPF (NONE SEEN); GRANULAR CAST 0-5 LPF (NONE SEEN); WHITE CELLS - URINE 0-5 HPF (0-1)
[2020-04-21 10:21] LABS: AMORPHOUS SEDIMENT <1+ /lpf (NONE SEEN)
--- NOTE | 2020-04-21 13:41 | NUR ---
0700 REPORT RECIEVED AND CARE ASSUMEDOF PATIENT.. SEE ADMISSION ASSESMENT FOR SHIFT ASSESMENT FINDINGS.. PATIENT IS ON BIPAP O2 AND VERY RESTLESS.. INCONTINENT OF URINE.. 0800 DR MCKEON PAGED RE PT RESTLESSNESS 0830 DR MCKEON RETURNED CALL .. ORDER RECIEVED TO CALL ANESTHESIA FOR INTUBATION AT THIS TIME.. 0900 ORALLY INTUBATED BY ANESTHESIA SZ 8 TUBE 23 AT LIPS.. ORAL CARE DONE WITH COPIOUS AMOUNTS OF THICK DARK MUCUS FROM BACK OF THROAT RETRIEVED PT IS SEDATED PER ANESTHESIA WITH PROPAFOL AND SUCS.. PLACED ON VENT AC 20 TV 500 FIO2 90 PEEP OF 7 PER RT.. LENZ CATH PLACED AT THIS TIME WITH CLOUDY YELLOW URINE OBTAINED SPECIMEN SENT TO LAB FOR CULTURE.. 0930 OGT PLACED AND PLACEMENT CONFIRMED WITH AIR BOLUS.. CXR DONE AT THIS TIME FOR ETT PLACEMENT AND OGT PLACEMENT.. BP IS LOW SINCE SEDATION FOR INTUBATION .. FENTANYLL PERFORMANCE ANALYST CONTINUOUS STARTED AT 50 MCG 1000 FENTANYLL INCREASED TO 100 MCG AND ATIVAN 1MG GIVEN FOR CONTINUED RESTLESSNESS 1130 DR MCKEON IN TO SEE PATIENT UPDATE IS GIVEN AND FLUID BOLUS OF 500 CC INITIATED FOR BP.. TO BE FOLLOWED WITH LEVOPHED DRIP IF WITHOUT RESULTS WITH BOLUS.. 1230 BOLUS THRU INFUSAING AND LEVOPHED INITIATED FOR BP 5 MCG 1330 LEVOPHED INCREASED BY 1 MCG.. PT IS MORE RESTFUL AT THIS TIME..
--- NOTE | 2020-04-21 15:41 | NUR ---
1230 BIATERAL PIV DCd PICC LINE IN UPPER RIGHT
--- NOTE | 2020-04-21 19:00 | NUR ---
ASSESSMENT COMPLETED.SEE FLOWSHEET FOR ALL FINDINGS. PT SEDATED ON VENT, AROUSES WITH VOICES.TITRATE LEVOPHED TO 8MCG FOR SBP>90. WILL CONT TO MONITOR.
[2020-04-22] VITALS (80 sets, daily range): BP systolic 90–133; BP diastolic 6–87
[2020-04-22 05:26] LABS: HEMATOCRIT 32.2 % (42.0-54.0); HEMOGLOBIN 10.3 g/dL (13.5-17.5); MCH 29.1 pg (26.0-34.0); MEAN PLATELET VOLUME 11.1 fL (7.4-10.4); PLATELET COUNT 67 10x3/uL (130-400); RBC 3.54 10x6/uL (4.20-6.10); WBC 23.9 10x3/uL (4.8-10.8)
[2020-04-22 05:42] LABS: ANION GAP 5.7 mmol/L (8-16); CALCIUM 7.4 mg/dL (8.5-10.1); CARBON DIOXIDE 39.5 mmol/L (21.0-32.0); CREATININE - SERUM 1.9 mg/dL (0.6-1.3); MAGNESIUM - SERUM 2.2 mg/dL (1.8-2.4); PHOSPHOROUS 2.8 mg/dL (2.5-4.9); POTASSIUM - SERUM 3.2 mmol/L (3.5-5.1); TROPONIN-I 0.051 ng/mL (0.000-0.060); VANCOMYCIN - RANDOM 15.7 ug/mL (10.0-20.0)
[2020-04-22 05:49] LABS: LYMPHOCYTES 2 % (15-50); MONOCYTES 3 % (2-11); NEUTROPHILS 83 % (40-80); PLATELET ESTIMATE DECREASED
--- NOTE | 2020-04-22 07:36 | NUR ---
0700 REPORT RECIEVED AND CARE ASSUMED OF PATIENT ... SEE FLOW SHEET FOR ASSESMENT FINDINGS..
[2020-04-23] VITALS (38 sets, daily range): BP systolic 88–148; BP diastolic 51–96
[2020-04-23 04:47] LABS: HEMATOCRIT 36.8 % (42.0-54.0); HEMOGLOBIN 11.5 g/dL (13.5-17.5); RBC 3.92 10x6/uL (4.20-6.10); WBC 20.1 10x3/uL (4.8-10.8)
[2020-04-23 04:48] LABS: BASOPHILS 0 % (0-2); EOSINOPHILS 0 % (0-7); IMMATURE GRANULOCYTES 0.7 % (0-5); MCH 29.3 pg (26.0-34.0); MCHC 31.3 g/dL (31.0-37.0); MCV 93.9 fL (80.0-100.0); MONOCYTES 2.1 % (2-11); NEUTROPHILS 95.2 % (40-80); PLATELET COUNT 57 10x3/uL (130-400); RDW 15.6 % (11.5-14.5)
[2020-04-23 05:21] LABS: ANION GAP 4.6 mmol/L (8-16); CALCIUM 7.5 mg/dL (8.5-10.1); CARBON DIOXIDE 39.8 mmol/L (21.0-32.0); CREATININE - SERUM 1.7 mg/dL (0.6-1.3); PHOSPHOROUS 3.3 mg/dL (2.5-4.9); POTASSIUM - SERUM 3.4 mmol/L (3.5-5.1); VANCOMYCIN - RANDOM 10.2 ug/mL (10.0-20.0)
[2020-04-23 05:38] LABS: INR 1.85 (0.85-1.17); PROTIME 21.1 SECONDS (11.6-15.0)
[2020-04-23 05:39] LABS: APTT 40.8 SECONDS (22.8-39.4); D-DIMER-QUANTITATIVE 1.73 ug/mLFEU (0.20-0.54)
--- NOTE | 2020-04-23 12:24 | NUR ---
Nutrition follow-up: Pt intubated 04/21; NPO OGT->LIWS Labs reviewed WT: 136# Recommend starting nutrition support via OGT when medically feasible. RDN recommends Suplena TF formula if pt without dialysis; Nepro if pt starts dialysis. RDN following.
[2020-04-24] VITALS (84 sets, daily range): BP systolic 70–132; BP diastolic 24–80
[2020-04-24 18:08] LABS: ACID FAST SMEAR Negative (()); AFB SPECIMEN PROCESSING Concentration (())
--- NOTE | 2020-04-24 23:10 | MORECARE ---
CASE MANAGEMENT DISCHARGE SUMMARY PATIENT: THANG MCDANIEL ASHLEY UNIT: [id number] ADM DATE: 04/17/20 AGE: 69 : 49 SEX: M ROOM/BED: D.2301 AUTHOR: OLGA POMPA PHYSICIAN: REFERRING PHYSICIAN: MARLO ROD MD DATE OF SERVICE: 04/24/20 Discharge Plan Patient Name: THANG MCDANIEL [facility] 1950 Planned Disposition: Anticipated Discharge Date: Discharge Date: Expected LOS: Initial Reviewer: [email or web address] Initial Review Date: 04/17/2020 Generated: 04/25/20 12:09 am Patient Name: THANG MCDANIEL Page 55793 at 2310 All edits/amendments must be made on the electronic document DICTATION DATE: 04/24/202309 ELECTRONIC DEVICE REPAIRER: ISIDRO 04/24/202309 RPT#: [id number] DC DATE: STATUS: ADM IN [facility] [address] [place] [address] END OF REPORT
[2020-04-25] VITALS (90 sets, daily range): BP systolic 81–114; BP diastolic 6–95; Ht 167.6 cm; Wt 63.6 kg
[2020-04-25 04:31] LABS: HEMOGLOBIN 9.7 g/dL (13.5-17.5); MCH 28.8 pg (26.0-34.0); MCHC 30.3 g/dL (31.0-37.0); RBC 3.37 10x6/uL (4.20-6.10); RDW 15.6 % (11.5-14.5); WBC 25.1 10x3/uL (4.8-10.8)
[2020-04-25 04:32] LABS: PLATELET COUNT 29 10x3/uL (130-400)
[2020-04-25 04:47] LABS: ALBUMIN 0.8 g/dL (3.4-5.0); ANION GAP 10.9 mmol/L (8-16); BILIRUBIN - TOTAL 0.33 mg/dL (0.2-1.3); POTASSIUM - SERUM 3.5 mmol/L (3.5-5.1); PROTEIN - SERUM 4.4 g/dL (6.4-8.2)
[2020-04-25 05:03] LABS: CARBON DIOXIDE 28.6 mmol/L (21.0-32.0)
[2020-04-25 08:27] LABS: NEUTROPHILS 98 % (40-80); PLATELET ESTIMATE DECREASED
--- NOTE | 2020-04-25 10:57 | NUR ---
Nutrition follow-up: Pt intubated, sedated Pulmocare being bolused @ 1 can every 3 hours? Labs reviewed; pt appears dehydrated or 3 spacing AEB elevated Na, Cl, BUN, Cr Wt: 140# Order for TF is for Nepro @ 10 ml/hr with a goal rate of 40 ml/hr RDN recommends to continue with Pulmocare 2/2 K, PO4 are WNL RDN following.
[2020-04-25 13:11] LABS: FUNGUS STAIN Final report (())
[2020-04-25 14:33] LABS: ERYTHROCYTE SEDIMENTATION RATE 21 mm/hr (0-20)
[2020-04-25 21:17] LABS: ALBUMIN 0.8 g/dL (3.4-5.0); ANION GAP 12.1 mmol/L (8-16); BILIRUBIN - TOTAL 0.31 mg/dL (0.2-1.3); CARBON DIOXIDE 25.6 mmol/L (21.0-32.0); CREATININE - SERUM 3.6 mg/dL (0.6-1.3); POTASSIUM - SERUM 3.7 mmol/L (3.5-5.1); PROTEIN - SERUM 4.2 g/dL (6.4-8.2)
[2020-04-25 21:22] LABS: CALCIUM 6.6 mg/dL (8.5-10.1)
[2020-04-25 21:27] LABS: COMPLEMENT C4 11.8 mg/dL (17.4-52.2)
[2020-04-26] VITALS (85 sets, daily range): BP systolic 71–145; BP diastolic 21–100
[2020-04-26 00:46] LABS: ANION GAP 11.9 mmol/L (8-16); CALCIUM 7.6 mg/dL (8.5-10.1); CARBON DIOXIDE 29.7 mmol/L (21.0-32.0); CREATININE - SERUM 4.1 mg/dL (0.6-1.3)
[2020-04-26 00:52] LABS: POTASSIUM - SERUM 4.6 mmol/L (3.5-5.1)
[2020-04-26 04:00] LABS: CREATININE - URINE 72.9 mg/dL (30-125); PRO/CRE RATIO URINE 4.5 mg/g
[2020-04-26 05:20] LABS: ALBUMIN 0.9 g/dL (3.4-5.0); ANION GAP 13.2 mmol/L (8-16); BILIRUBIN - TOTAL 0.37 mg/dL (0.2-1.3); CALCIUM 7.3 mg/dL (8.5-10.1); CARBON DIOXIDE 27.4 mmol/L (21.0-32.0); CREATININE - SERUM 4.2 mg/dL (0.6-1.3); POTASSIUM - SERUM 4.6 mmol/L (3.5-5.1); PROTEIN - SERUM 4.4 g/dL (6.4-8.2)
[2020-04-26 05:24] LABS: BASOPHILS 0.1 % (0-2); EOSINOPHILS 0 % (0-7); HEMATOCRIT 32.6 % (42.0-54.0); HEMOGLOBIN 10.1 g/dL (13.5-17.5); IMMATURE GRANULOCYTES 1.4 % (0-5); LYMPHOCYTES 2.4 % (15-50); MCH 29.2 pg (26.0-34.0); MCV 94.2 fL (80.0-100.0); MEAN PLATELET VOLUME 13.3 fL (7.4-10.4); MONOCYTES 0.8 % (2-11); NEUTROPHILS 95.3 % (40-80); PLATELET COUNT 131 10x3/uL (130-400); RBC 3.46 10x6/uL (4.20-6.10); RDW 15.9 % (11.5-14.5); WBC 40.3 10x3/uL (4.8-10.8)
[2020-04-26 09:53] LABS: HEMATOCRIT 32.4 % (42.0-54.0); HEMOGLOBIN 10.2 g/dL (13.5-17.5); MCH 30.1 pg (26.0-34.0); MCHC 31.5 g/dL (31.0-37.0); MCV 95.6 fL (80.0-100.0); PLATELET COUNT 120 10x3/uL (130-400); RBC 3.39 10x6/uL (4.20-6.10); RDW 15.9 % (11.5-14.5)
[2020-04-26 10:12] LABS: ANA REFLEX - DIRECT Negative (Negative)
[2020-04-26 10:16] LABS: LYMPHOCYTES 2 % (15-50); NEUTROPHILS 95 % (40-80); PLATELET ESTIMATE DECREASED
--- NOTE | 2020-04-26 10:50 | NUR ---
Patient extubated at 1050 and placed on bipap and sedation off at this time. Will leave restraints on due to potential of her pulling out her lines at this time.
[2020-04-26 13:27] LABS: PROTEIN - BODY FLUID 1.5 G/DL
[2020-04-26 14:11] LABS: SPE - A/G RATIO 0.5 (0.7-1.7); SPE - ALBUMIN 1.3 g/dL (2.9-4.4); SPE - ALPHA-1 GLOBULIN 0.3 g/dL (0.0-0.4); SPE - ALPHA-2 GLOBULIN 1.1 g/dL (0.4-1.0); SPE - BETA GLOBULIN 0.5 g/dL (0.7-1.3); SPE - GAMMA GLOBULIN 0.7 g/dL (0.4-1.8); SPE - M-SPIKE 0.1 g/dL (Not Observed); SPE - TOTAL PROTEIN 3.9 g/dL (6.0-8.5)
--- NOTE | 2020-04-26 14:29 | NUR ---
Thoracentesis done and around 700cc drained and sent to lab.
[2020-04-27] VITALS (81 sets, daily range): BP systolic 87–133; BP diastolic 25–100
[2020-04-27 05:15] LABS: BASOPHILS 0.1 % (0-2); EOSINOPHILS 0 % (0-7); HEMATOCRIT 27.5 % (42.0-54.0); HEMOGLOBIN 8.6 g/dL (13.5-17.5); IMMATURE GRANULOCYTES 0.7 % (0-5); LYMPHOCYTES 1.5 % (15-50); MCH 29.6 pg (26.0-34.0); MCHC 31.3 g/dL (31.0-37.0); MCV 94.5 fL (80.0-100.0); MEAN PLATELET VOLUME 13.5 fL (7.4-10.4); MONOCYTES 0.5 % (2-11); NEUTROPHILS 97.2 % (40-80); PLATELET COUNT 124 10x3/uL (130-400); RBC 2.91 10x6/uL (4.20-6.10); RDW 15.8 % (11.5-14.5); WBC 35.4 10x3/uL (4.8-10.8)
[2020-04-27 05:34] LABS: ALBUMIN 0.9 g/dL (3.4-5.0); ANION GAP 12.3 mmol/L (8-16); BILIRUBIN - TOTAL 0.36 mg/dL (0.2-1.3); CARBON DIOXIDE 24.1 mmol/L (21.0-32.0); CREATININE - SERUM 4.2 mg/dL (0.6-1.3); POTASSIUM - SERUM 4.4 mmol/L (3.5-5.1); PROTEIN - SERUM 4.4 g/dL (6.4-8.2)
[2020-04-27 06:12] LABS: CALCIUM 6.6 mg/dL (8.5-10.1)
--- NOTE | 2020-04-27 07:01 | NUR ---
CRITICAL LABS BUN 135 CA 6.[address] GIVEN TO [address] GUERRA. NO NEW ORDERS AT THIS TIME
--- NOTE | 2020-04-27 09:28 | NUR ---
Nutrition follow-up: Pt NPO 2/2 to BP problems; trendelenburg position Labs reviewed Pt on multiple pressors at this time RDN following.
--- NOTE | 2020-04-27 09:29 | NUR ---
Call received from pt's brother and sister martina. Passcode verified. Told that pt is still very ill. On two vasopressor. Fio2 at 90% at this time.
--- NOTE | 2020-04-27 09:51 | NUR ---
Call received from Darrell castro's son. Passcode verified. Up date given. Told patient is very ill and on 2 vasopressors.
[2020-04-27 12:12] LABS: FUNGUS STAIN Final report (())
[2020-04-27 12:12] LABS: FUNGUS STAIN Final report (())
[2020-04-27 12:12] LABS: ANTI-GLOMERULAR BASMENT MEMBRN 3 units (0-20)
--- NOTE | 2020-04-27 18:22 | NUR ---
Call received from Andrez Hahn. Passcode verified. Update given.
--- NOTE | 2020-04-27 20:07 | MORECARE ---
CASE MANAGEMENT DISCHARGE SUMMARY PATIENT: THANG MCDANIEL ASHLEY UNIT: [id number] ADM DATE: 04/17/20 AGE: 69 : 49 SEX: M ROOM/BED: D.2301 AUTHOR: OLGA POMPA PHYSICIAN: REFERRING PHYSICIAN: MARLO ROD MD DATE OF SERVICE: 04/27/20 Discharge Plan Patient Name: THANG MCDANIEL [facility] [facility] 1950 Planned Disposition: Inpatient Rehab Anticipated Discharge Date: Discharge Date: Expected LOS: Initial Reviewer: [email or web address] Initial Review Date: 04/17/2020 Generated: 04/27/20 9:06 pm Last DP export: 04/24/20 10:10 p Patient Name: THANG MCDANIEL Page [id number] at 2006 All edits/amendments must be made on the electronic document DICTATION DATE: 04/27/202006 TEMPLATE CLERK: ISIDRO 04/27/202006 RPT#: [id number] DC DATE: STATUS: ADM IN [facility] [address] [place] [address] END OF REPORT
--- NOTE | 2020-04-27 20:14 | MORECARE ---
CASE MANAGEMENT DISCHARGE SUMMARY PATIENT: THANG MCDANIEL UNIT: [id number] ADM DATE: 04/17/20 AGE: 69 : [birth year] SEX: M ROOM/BED: D.2301 AUTHOR: OLGA POMPA PHYSICIAN: REFERRING PHYSICIAN: MARLO ROD MD DATE OF SERVICE: 04/27/20 Discharge Plan Patient Name: THANG MCDANIEL Facility: [facility]:[place] : 1950 Planned Disposition: Inpatient Rehab Anticipated Discharge Date: Discharge Date: Expected LOS: Initial Reviewer: [email or web address] Initial Review Date: 04/17/2020 Generated: 04/27/20 9:13 pm Comments DCP- Discharge Planning Updated by [email or web address]: Alondra Hogan on 04/27/20 7:[address] Patient Name: THANG MCDANIEL Admission Status: ER Accout number: [id number] Admission Date: 04-17-2020 : 1950 Admission Diagnosis:PNEUMONIA, UNSPECIFIED ORGANISM Attending: MARLO ROD Current LOS: 10 Anticipated DC Date: Planned Disposition: Inpatient Rehab Primary Insurance: [employer] P[employer] MCR ADVANT Discharge Planning Comments: CM called and spoke with patient's brother Colin to complete initial dc planning assessment. CM educated patient on the CM role and verbal consent given by patient to complete assessment. Patient lives at home alone but his brother lives close. Patient is independent. At discharge patient plans to return home and feels this is a safe discharge. CM discussed availability of home health, rehab services, and medical equipment. Colin stated that the patient has home/ portable 02, and nebulizer. Patient will have family to transport home. BIRDIE completed for Inpatient Rehab @ [facility]. Patient denied known discharge needs at this time. CM will continue to follow and will assist as needed with dc plans/needs. Repairer Sash And Door: Alondra Hogan DCPIA - Discharge Planning Initial Assessment Updated by [email or web address]: Alondra Hogan on 04/27/20 8:09 pm * Is the patient Alert and Oriented? No * How many steps to enter\exit or inside your home? * PCP [place] * Pharmacy [facility] [address] * Preadmission Environment Home Alone * ADLs Independent * Other Equipment HOME / PORT 02, NEBULIZER * List name and contact numbers for known caregivers / representatives who currently or will assist patient after discharge: ADRIEL DELACRUZ [facility] - [phone] COLIN MCDANIEL BOTH- [phone] [facility] [phone] * Verbal permission to speak to the caregivers and representatives has been obtained from the patient. Yes * Community resources currently utilized None * Additional services required to return to the preadmission environment? No * Can the patient safely return to the preadmission environment? Yes * Has this patient been hospitalized within the prior 30 days at any hospital? No Last DP export: 04/27/20 7:07 p Patient Name: THANG MCDANIEL Page [id number] at 2013 All edits/amendments must be made on the electronic document DICTATION DATE: 04/27/202013 WILDLIFE AND GAME PROTECTOR: ISIDRO 04/27/202013 RPT#: [id number] DC DATE: STATUS: ADM IN [facility] [address] [place] [address] END OF REPORT
[2020-04-28] VITALS (53 sets, daily range): BP systolic 55–139; BP diastolic 33–77
[2020-04-28 06:24] LABS: HEMATOCRIT 27.2 % (42.0-54.0); HEMOGLOBIN 8.4 g/dL (13.5-17.5); MCH 28.4 pg (26.0-34.0); MCHC 30.9 g/dL (31.0-37.0); MCV 91.9 fL (80.0-100.0); MEAN PLATELET VOLUME 13.4 fL (7.4-10.4); PLATELET COUNT 123 10x3/uL (130-400); RBC 2.96 10x6/uL (4.20-6.10); RDW 15.7 % (11.5-14.5); WBC 37.2 10x3/uL (4.8-10.8)
[2020-04-28 06:33] LABS: ALBUMIN 1.1 g/dL (3.4-5.0); BILIRUBIN - TOTAL 0.4 mg/dL (0.2-1.3); CARBON DIOXIDE 23.3 mmol/L (21.0-32.0); CREATININE - SERUM 5.1 mg/dL (0.6-1.3); PROTEIN - SERUM 4.8 g/dL (6.4-8.2)
[2020-04-28 06:36] LABS: ANION GAP 15.9 mmol/L (8-16); CALCIUM 6.9 mg/dL (8.5-10.1); POTASSIUM - SERUM 5.2 mmol/L (3.5-5.1)
[2020-04-28 06:52] LABS: LYMPHOCYTES 2 % (15-50); NEUTROPHILS 98 % (40-80); PLATELET ESTIMATE NORMAL
[2020-04-28 06:53] LABS: ANISOCYTOSIS OCC; TARGET CELLS OCC
--- NOTE | 2020-04-28 13:12 | NUR ---
Dr. Schmidt notified of DNR order. Wants to wait on starting tube feeds until family brings copy of living will.
--- NOTE | 2020-04-28 15:08 | NUR ---
Pt has declined in last hour. BP 74/42 MAP 52. Levophed up to 5mcg/min. O2 sat 80s, hr 103. Dr. Schmidt notified. Andrez Hahn notified of pt's decline. He is currently in [place]. Plans to come see patient. Explained that pt is declining fast. No new orders received from Dr. Schmidt at this time.
--- NOTE | 2020-04-28 15:18 | NUR ---
Dr. Dimas notified of patient decline. Continue to with levophed but do not add other pressors. Pt is DNR.
--- NOTE | 2020-04-28 16:30 | NUR ---
Dr. Dimas notified that family in room and would like to talk to physician.
--- NOTE | 2020-04-28 17:14 | NUR ---
IV drips dc'd per order. Morphine 10mg IV given per order. Pt will be terminally extubated per family request.
--- NOTE | 2020-04-28 19:33 | NUR ---
Per Dr. Judie overton to give 10mg morphine IV.
--- NOTE | 2020-04-28 20:05 | NUR ---
PATIENT EXTUBATED BY RT PER ORDERS. RESTING COMFORTABLY. RESTRAINTS OFF. OGT CAME OUT WITH EXTUBATION.
--- NOTE | 2020-04-28 20:50 | NUR ---
PT NON-RESPONSIVE IN ROOM. NO VITALS DETECTED. [facility] ON-CALL NOTIFIED, SPOKE WITH FLAVIO SHIPMAN AND TRANSFERED CALL TO ER.
--- NOTE | 2020-04-28 21:10 | NUR ---
CALLED PTs BROTHER/POA, KURT VIOLETA, TO NOTIFY OF PTs PASSING. HE STATED THE FAMILY HAS [facility]OSEN [facility] PT AND IF ANY OTHER PT BELONGINGS ARE FOUND, TO SEND THEM WITH HOME.
[2020-04-29 18:07] LABS: ANCA - ANTIMYELOPEROXIDASE <9.0 U/mL (0.0-9.0); ANCA - ANTIPROTEINASE 3 <3.5 U/mL (0.0-3.5); ANCA - ATYPICAL <1:20 titer (Neg:<1:20); ANCA - CYTOPLASMIC <1:20 titer (Neg:<1:20); ANCA - PERINUCLEAR <1:20 titer (Neg:<1:20)
--- NOTE | 2020-04-30 08:43 | MORECARE ---
CASE MANAGEMENT DISCHARGE SUMMARY PATIENT: THANG MCDANIEL ASHLEY UNIT: [id number] ADM DATE: 04/17/20 AGE: 69 : 48 SEX: M ROOM/BED: D.2301 AUTHOR: OLGA POMPA PHYSICIAN: REFERRING PHYSICIAN: MARLO ROD MD DATE OF SERVICE: 04/30/20 Discharge Plan Patient Name: THANG MCDANIEL Facility: [facility]:[place] : 1950 Planned Disposition: Inpatient Rehab Anticipated Discharge Date: Discharge Date: 04/28/2020 Expected LOS: Initial Reviewer: [email or web address] Initial Review Date: 04/17/2020 Generated: 04/30/20 9:42 am Comments DCP- Discharge Planning Updated by [email or web address]: Alondra Hogan on 04/27/20 7:[address] Patient Name: THANG MCDANIEL Admission Status: ER Accout number: [id number] Admission Date: 04-17-2020 : 1950 Admission Diagnosis:PNEUMONIA, UNSPECIFIED ORGANISM Attending: MARLO ROD Current LOS: 10 Anticipated DC Date: Planned Disposition: Inpatient Rehab Primary Insurance: [employer] CHO[employer] PPO [facility] Discharge Planning Comments: CM called and spoke with patient's brother Colin to complete initial dc planning assessment. CM educated patient on the CM role and verbal consent given by patient to complete assessment. Patient lives at home alone but his brother lives close. Patient is independent. At discharge patient plans to return home and feels this is a safe discharge. CM discussed availability of home health, rehab services, and medical equipment. Colin stated that the patient has home/ portable 02, and nebulizer. Patient will have family to transport home. BIRDIE completed for Inpatient Rehab @ [facility]. Patient denied known discharge needs at this time. CM will continue to follow and will assist as needed with dc plans/needs. Employer Relations Representative: Alondra Hogan DCPIA - Discharge Planning Initial Assessment Updated by [email or web address]: Alondra Hogan on 04/27/20 8:09 pm * Is the patient Alert and Oriented? No * How many steps to enter\exit or inside your home? * PCP OG[facility] * Pharmacy [facility] - [address] * Preadmission Environment Home Alone * ADLs Independent * Other Equipment HOME / PORT 02, NEBULIZER * List name and contact numbers for known caregivers / representatives who currently or will assist patient after discharge: ADRIEL DELACRUZ -[facility] - [phone] COLIN MCDANIEL [facility]- [phone] [facility] [phone] * Verbal permission to speak to the caregivers and representatives has been obtained from the patient. Yes * Community resources currently utilized None * Additional services required to return to the preadmission environment? No * Can the patient safely return to the preadmission environment? Yes * Has this patient been hospitalized within the prior 30 days at any hospital? No Last DP export: 04/27/20 7:14 p Patient Name: THANG MCDANIEL Page [id number] at 0843 All edits/amendments must be made on the electronic document DICTATION DATE: 04/30/20841 RECRUITING SCHEDULER: ISIDRO 04/30/2042 RPT#: [id number] DC DATE:04/28/20 STATUS: DIS IN [facility] [address] [place] [address] END OF REPORT
--- NOTE | 2020-04-30 11:37 | NUR ---
Per CMS protocol, restraint report logged into data base.
== END 2020-04-28 21:35 | DRG 870 ==
LOC: D.ER 13:54 → D.ICU 17:18 → D.M2 17:18 → D.EDHOLD 17:18 → D.M2 17:36 → D.ICU 04-18 20:57
PROVIDERS: Family Medicine; Internal Medicine Nephrology; Internal Medicine Pulmonary Disease; Radiology Diagnostic Radiology; ADMIT Emergency Medicine; ATTEND Emergency Medicine
PROC: 05HY33Z Insertion of Infusion Device into Upper Vein, Percutaneous Approach (ICD-10-PCS; principal; 2020-04-20 14:34)
PROC: 5A1955Z Respiratory Ventilation, Greater than 96 Consecutive Hours (ICD-10-PCS; 2020-04-21)
PROC: 0BH17EZ Insertion of Endotracheal Airway into Trachea, Via Natural or Artificial Opening (ICD-10-PCS; 2020-04-21)
PROC: 0B9J8ZX Drainage of Left Lower Lung Lobe, Via Natural or Artificial Opening Endoscopic, Diagnostic (ICD-10-PCS; 2020-04-23)
PROC: 0B9J8ZX Drainage of Left Lower Lung Lobe, Via Natural or Artificial Opening Endoscopic, Diagnostic (ICD-10-PCS; 2020-04-25)
PROC: 0W9B3ZZ Drainage of Left Pleural Cavity, Percutaneous Approach (ICD-10-PCS; 2020-04-26)
DX: A41.9 Sepsis, unspecified organism (principal); J15.6 Pneumonia due to other Gram-negative bacteria; J96.01 Acute respiratory failure with hypoxia; J96.02 Acute respiratory failure with hypercapnia; N17.0 Acute kidney failure with tubular necrosis; R65.21 Severe sepsis with septic shock; N39.0 Urinary tract infection, site not specified; E87.1 Hypo-osmolality and hyponatremia; Z66 Do not resuscitate; I10 Essential (primary) hypertension; K21.9 Gastro-esophageal reflux disease without esophagitis; E78.5 Hyperlipidemia, unspecified; I25.10 Atherosclerotic heart disease of native coronary artery without angina pectoris; Z95.0 Presence of cardiac pacemaker; J43.9 Emphysema, unspecified; R00.0 Tachycardia, unspecified; D75.82 Heparin induced thrombocytopenia (HIT)